=== PATIENT | female | born 1950 | race Caucasian/White ===

== ENCOUNTER → 2018-05-29 | Outpatient (CLI) | payer MEDICARE, OTHER ==
--- NOTE | 2018-05-30 08:39 | XR ---
2 view abdomen HISTORY: Severe lower abdomen pain and constipation 2 views the abdomen No comparisons Lung bases are clear. There is a spinal curvature, degenerative disc changes are present in the visua lized spine. No evident bowel obstruction or pneumoperitoneum. Coarse 3.3 cm calcification in the rig ht hemipelvis may be due to fibroid. Calcification superimposed over the midline measuring 9 mm is in determinate but could represent calcified diverticulum. IMPRESSION: Nonobstructive bowel gas pattern.
== END | disposition home or self-care (01) ==
LOC: RADXRMAIN 16:54
PROVIDERS: ATTEND Family Medicine
DX: R10.9 Unspecified abdominal pain (principal)
CPT/HCPCS: 74019

== ENCOUNTER 2019-06-12 11:37 | Inpatient (IN) | payer MEDICARE, OTHER ==
[2019-06-12] MEDS ORDERED: IPRATROPIUM-ALBUTEROL 3 ML NEB INHALATION STA (12:05)
[2019-06-12 12:45] LABS: Basophils # (A) 0.1 k/uL (0-0.2); Basophils % (A) 1 %; Eosinophils # (A) 0.1 k/uL (0-0.7); Eosinophils % (A) 2 %; HGB 14.4 gm/dL (11.4-16.0); Lymphocytes # (A) 1.6 k/uL (1.0-4.8); Lymphocytes % (A) 18 %; MCHC 32.6 g/dL (31.0-37.0); MCV 95.1 fL (80.0-100.0); Mean Platelet Volume 6.7; Monocytes # (A) 0.4 k/uL (0-1.0); Monocytes % (A) 5 %; Neutrophils # (A) 6.6 k/uL (1.3-7.7); Neutrophils % (A) 74 %; Platelet Count 391 k/uL (150-450); RBC 4.63 m/uL (3.80-5.40); RDW 14.2 % (11.5-15.5); WBC 8.9 k/uL (3.8-10.6)
--- NOTE | 2019-06-12 12:47 | XR ---
EXAMINATION TYPE: XR chest 2V DATE OF EXAM: 06/12/2019 COMPARISON: NONE TECHNIQUE: PA and lateral views submitted. HISTORY: Difficulty breathing FINDINGS: The lungs are clear and there is no pneumothorax, pleural effusion, or focal pneumonia. Diffuse ost eopenia with arthropathy of the shoulders. Hypertrophic and degenerative change of the spine. No over t failure. No consolidative process. IMPRESSION: 1. Correlate for COPD.
[2019-06-12 12:51] LABS: Appearance,Urine Clear (Clear); Bacteria,Urine Occasional /hpf; Bilirubin,Urine Negative (Negative); Blood,Urine Negative (Negative); Color,Urine Yellow; Glucose,Urine (UA) 1+ (Negative); Ketones,Urine Negative (Negative); Leukocyte Esterase,Urine Negative (Negative); Mucus,Urine Rare /hpf; Nitrite,Urine Negative (Negative); Protein,Urine 1+ (Negative); RBC,Urine 1 /hpf (0-5); Squamous Epithelial Cell,Urine 1 /hpf (0-4); Urobilinogen,Urine <2.0 mg/dL (<2.0)
[2019-06-12 12:53] LABS: INR 0.9 (<1.2); Partial Thromboplastin Time 23.1 sec (22.0-30.0); Prothrombin Time 9.6 sec (9.0-12.0)
[2019-06-12 13:14] LABS: ALT 22 U/L (9-52); AST 23 U/L (14-36); African American GFR (CKD) >90 (>60 ml/min/1.73 sqM); Albumin 4.4 g/dL (3.5-5.0); Alkaline Phosphatase 65 U/L (38-126); Anion Gap 14 mmol/L; Blood Urea Nitrogen 15 mg/dL (7-17); Calcium 10.2 mg/dL (8.4-10.2); Carbon Dioxide 22 mmol/L (22-30); Chloride 101 mmol/L (98-107); Glucose 245 mg/dL (74-99); Magnesium 1.4 mg/dL (1.6-2.3); Potassium 4.8 mmol/L (3.5-5.1); Sodium 137 mmol/L (137-145); Total Bilirubin 0.3 mg/dL (0.2-1.3); Total Protein 7.6 g/dL (6.3-8.2)
--- NOTE | 2019-06-12 13:35 | ED ---
General Adult HPI - General Source: patient, RN notes reviewed Mode of arrival: ambulatory Limitations: no limitations <Sung Jones - Last Filed: 06/12/19 15:10> <Conor Klein - Last Filed: 06/12/19 15:24> - General Chief complaint: Recheck/Abnormal Lab/Rx Stated complaint: high blood sugar/diarrhea Time Seen by Provider: 06/12/19 11:46 - History of Present Illness Initial comments: 68-year-old female presents emergency Department with multiple complaints. Patient states she just does not feel well. Patient has had some recent medication adjustments including discontinuation of gabapentin, starting about baclofen. Patient states that her blood sugars have been very labile states that she was in the 120s 130s but then we'll shield to 300s without eating. Patient states that she does feel shaky. She's also had some chest congestion or shortness of breath. Patient states she is a smoker and his history of COPD. Denies any current chest pain. She does complain of some ongoing diarrhea but denies any melena or hematochezia. Patient has no dysuria no hematuria denies any flank pain, known fever or chills. (Sung Jones) - Related Data Allergies Allergy/AdvReac Type Severity Reaction Status Date / Time No Known Allergies Allergy Verified 06/12/19 11:44 Review of Systems ROS Other: All systems not noted in ROS Statement are negative. <Sung Jones - Last Filed: 06/12/19 15:10> ROS Other: All systems not noted in ROS Statement are negative. <Conor Klein - Last Filed: 06/12/19 15:24> ROS Statement: Those systems with pertinent positive or pertinent negative responses have been documented in the HPI. Past Medical History Past Medical History: Diabetes Mellitus, Hyperlipidemia, Hypertension, Syncope Additional Past Medical History / Comment(s): neuropathy History of Any Multi-Drug Resistant Organisms: None Reported Past Surgical History: Cholecystectomy Additional Past Surgical History / Comment(s): umbilicus removed Past Psychological History: No Psychological Hx Reported Smoking Status: Current every day smoker Past Alcohol Use History: None Reported Past Drug Use History: None Reported <Sung Jones - Last Filed: 06/12/19 15:10> General Exam Limitations: no limitations General appearance: alert, in no apparent distress Head exam: Present: atraumatic, normocephalic, normal inspection Eye exam: Present: normal appearance, PERRL, EOMI. Absent: scleral icterus, conjunctival injection, periorbital swelling ENT exam: Present: normal exam, normal oropharynx, mucous membranes moist, TM's normal bilaterally Neck exam: Present: normal inspection, full ROM. Absent: tenderness, meningismus, lymphadenopathy Respiratory exam: Present: wheezes. Absent: normal lung sounds bilaterally, respiratory distress, rales, rhonchi, stridor Cardiovascular Exam: Present: regular rate, normal rhythm, normal heart sounds. Absent: systolic murmur, diastolic murmur, rubs, gallop, clicks GI/Abdominal exam: Present: soft, normal bowel sounds. Absent: distended, tenderness, guarding, rebound, rigid Back exam: Absent: CVA tenderness (R), CVA tenderness (L) Neurological exam: Present: alert Skin exam: Present: warm, dry, intact, normal color. Absent: rash <Sung Jones - Last Filed: 06/12/19 15:10> Course <Sung Jones - Last Filed: 06/12/19 15:10> <Conor Klein - Last Filed: 06/12/19 15:24> Vital Signs 06/12/19 06/12/19 06/12/19 11:38 12:43 12:49 Temperature 98.2 F Pulse Rate 101 H 86 88 Respiratory 16 16 16 Rate Blood Pressure 177/88 O2 Sat by Pulse 97 Oximetry 06/12/19 06/12/19 14:55 15:11 Temperature Pulse Rate 80 80 Respiratory Rate Blood Pressure O2 Sat by Pulse Oximetry - Reevaluation(s) Reevaluation #1: 06/12/19 14:31 Patient was been updated on lab results at this time and patient stated that she had a groin abscess and which she forgot to mention. This was evaluated with RN which shows a large area of induration, erythema and drainage on the right inguinal region. At this time patient was started on antibiotics for possible sepsis related to groin abscess, COPD exacerbation IV fluids were ordered. (Sung Jones) Reevaluation #2: 06/12/19 15:23 The supervision: I personally do a [id number] evaluation the patient patient did present with shortness of breath also she was noted have elevated blood sugar Acid originally thought to be secondary to dehydration this still may be the case however the patient does demonstrate evidence also she had a abscess in her right groin and has been spontaneously draining there is some induration no definite fluctuance at this time. She'll be placed on IV antibiotics. The case is discussed with Dr. Arroyo. (Conor Klein) EKG Findings - EKG Comments: EKG Findings:: 12:29 normal sinus rhythm incomplete right bundle rate of 89 RI 1:30 QRS 72 QT/QTC 338/411 <Sung Jones - Last Filed: 06/12/19 15:10> Procedures - Sepsis Sepsis Focused Exam #1 Time Sepsis Criteria Met: 15:00 Sepsis Focused Exam Date: 06/12/19 Sepsis Focused Exam Time: 15:12 Sepsis Focused Exam Complete: Yes Vital Signs & RN Notes Reviewed: Yes Capillary Refill: < 2 Seconds: Fingers, Toes Peripheral Pulses: Normal: Radial (R), Radial (L), Posterior Tibialis (R), Po sterior Tibialis (L), Dorsalis Pedis (R), Dorsalis Pedis (L) Skin Color: Normal for Patient Respiratory Exam: wheezes Cardiovascular Exam: tachycardia <Sung Jones - Last Filed: 06/12/19 15:10> Medical Decision Making - Lab Data Result diagrams: 06/12/19 12:24 06/12/19 12:24 <Sung Jones - Last Filed: 06/12/19 15:10> - Lab Data Result diagrams: 06/12/19 12:24 06/12/19 12:24 <Conor Klein - Last Filed: 06/12/19 15:24> - Medical Decision Making 68-year-old female presents emergency from for does not feel well. She's had labile blood sugar, diarrhea, shortness of breath. Patient has a COPD exacerb ation, , groin abscess, hyperglycemia. Patient was given IV fluid bolus based on I did evaluate to 59 kg, antibiotics including Rocephin and vancomycin ordered (Sung Jones) - Lab Data Lab Results 06/12/19 06/12/19 06/12/19 Range/Units 12:24 12:24 12:24 WBC 8.9 (3.8-10.6) k/uL RBC 4.63 (3.80-5.40) m/uL Hgb 14.4 (11.4-16.0) gm/dL Hct 44.0 (34.0-46.0) % MCV 95.1 (80.0-100.0) fL MCH 31.0 (25.0-35.0) pg MCHC 32.6 (31.0-37.0) g/dL RDW 14.2 (11.5-15.5) % Plt Count 391 (150-450) k/uL Neutrophils % 74 % Lymphocytes % 18 % Monocytes % 5 % Eosinophils % 2 % Basophils % 1 % Neutrophils # 6.6 (1.3-7.7) k/uL Lymphocytes # 1.6 (1.0-4.8) k/uL Monocytes # 0.4 (0-1.0) k/uL Eosinophils # 0.1 (0-0.7) k/uL Basophils # 0.1 (0-0.2) k/uL PT (9.0-12.0) sec INR (<1.2) APTT (22.0-30.0) sec Sodium 137 (137-145) mmol/L Potassium 4.8 (3.5-5.1) mmol/L Chloride 101 (98-107) mmol/L Carbon Dioxide 22 (22-30) mmol/L Anion Gap 14 mmol/L BUN 15 (7-17) mg/dL Creatinine 0.63 (0.52-1.04) mg/dL Est GFR (CKD-EPI)AfAm >90 (>60 ml/min/1.73 sqM) Est GFR (CKD-EPI)NonAf >90 (>60 ml/min/1.73 sqM) Glucose 245 H (74-99) mg/dL Plasma Lactic Acid Félix 4.0 H* (0.7-2.0) mmol/L Calcium 10.2 (8.4-10.2) mg/dL Magnesium 1.4 L (1.6-2.3) mg/dL Total Bilirubin 0.3 (0.2-1.3) mg/dL AST 23 (14-36) U/L ALT 22 (9-52) U/L Alkaline Phosphatase 65 (38-126) U/L Troponin I (0.000-0.034) ng/mL NT-Pro-B Natriuret Pep pg/mL Total Protein 7.6 (6.3-8.2) g/dL Albumin 4.4 (3.5-5.0) g/dL Urine Color Urine Appearance (Clear) Urine pH (5.0-8.0) Ur Specific [place] (1.001-1.035) Urine Protein (Negative) Urine Glucose (UA) (Negative) Urine Ketones (Negative) Urine Blood (Negative) Urine Nitrite (Negative) Urine Bilirubin (Negative) Urine Urobilinogen (<2.0) mg/dL Ur Leukocyte Esterase (Negative) Urine RBC (0-5) /hpf Urine WBC (0-5) /hpf Ur Squamous Epith Cells (0-4) /hpf Urine Bacteria (None) /hpf Urine Mucus (None) /hpf 06/12/19 06/12/19 06/12/19 Range/Units 12:24 12:24 12:24 WBC (3.8-10.6) k/uL RBC (3.80-5.40) m/uL Hgb (11.4-16.0) gm/dL Hct (34.0-46.0) % MCV (80.0-100.0) fL MCH (25.0-35.0) pg MCHC (31.0-37.0) g/dL RDW (11.5-15.5) % Plt Count (150-450) k/uL Neutrophils % % Lymphocytes % % Monocytes % % Eosinophils % % Basophils % % Neutrophils # (1.3-7.7) k/uL Lymphocytes # (1.0-4.8) k/uL Monocytes # (0-1.0) k/uL Eosinophils # (0-0.7) k/uL Basophils # (0-0.2) k/uL PT 9.6 (9.0-12.0) sec INR 0.9 (<1.2) APTT 23.1 (22.0-30.0) sec Sodium (137-145) mmol/L Potassium (3.5-5.1) mmol/L Chloride (98-107) mmol/L Carbon Dioxide (22-30) mmol/L Anion Gap mmol/L BUN (7-17) mg/dL Creatinine (0.52-1.04) mg/dL Est GFR (CKD-EPI)AfAm (>60 ml/min/1.73 sqM) Est GFR (CKD-EPI)NonAf (>60 ml/min/1.73 sqM) Glucose (74-99) mg/dL Plasma Lactic Acid Félix (0.7-2.0) mmol/L Calcium (8.4-10.2) mg/dL Magnesium (1.6-2.3) mg/dL Total Bilirubin (0.2-1.3) mg/dL AST (14-36) U/L ALT (9-52) U/L Alkaline Phosphatase (38-126) U/L Troponin I <0.012 (0.000-0.034) ng/mL NT-Pro-B Natriuret Pep 118 pg/mL Total Protein (6.3-8.2) g/dL Albumin (3.5-5.0) g/dL Urine Color Urine Appearance (Clear) Urine pH (5.0-8.0) Ur Specific [place] (1.001-1.035) Urine Protein (Negative) Urine Glucose (UA) (Negative) Urine Ketones (Negative) Urine Blood (Negative) Urine Nitrite (Negative) Urine Bilirubin (Negative) Urine Urobilinogen (<2.0) mg/dL Ur Leukocyte Esterase (Negative) Urine RBC (0-5) /hpf Urine WBC (0-5) /hpf Ur Squamous Epith Cells (0-4) /hpf Urine Bacteria (None) /hpf Urine Mucus (None) /hpf 06/12/19 Range/Units 12:24 WBC (3.8-10.6) k/uL RBC (3.80-5.40) m/uL Hgb (11.4-16.0) gm/dL Hct (34.0-46.0) % MCV (80.0-100.0) fL MCH (25.0-35.0) pg MCHC (31.0-37.0) g/dL RDW (11.5-15.5) % Plt Count (150-450) k/uL Neutrophils % % Lymphocytes % % Monocytes % % Eosinophils % % Basophils % % Neutrophils # (1.3-7.7) k/uL Lymphocytes # (1.0-4.8) k/uL Monocytes # (0-1.0) k/uL Eosinophils # (0-0.7) k/uL Basophils # (0-0.2) k/uL PT (9.0-12.0) sec INR (<1.2) APTT (22.0-30.0) sec Sodium (137-145) mmol/L Potassium (3.5-5.1) mmol/L Chloride (98-107) mmol/L Carbon Dioxide (22-30) mmol/L Anion Gap mmol/L BUN (7-17) mg/dL Creatinine (0.52-1.04) mg/dL Est GFR (CKD-EPI)AfAm (>60 ml/min/1.73 sqM) Est GFR (CKD-EPI)NonAf (>60 ml/min/1.73 sqM) Glucose (74-99) mg/dL Plasma Lactic Acid Félix (0.7-2.0) mmol/L Calcium (8.4-10.2) mg/dL Magnesium (1.6-2.3) mg/dL Total Bilirubin (0.2-1.3) mg/dL AST (14-36) U/L ALT (9-52) U/L Alkaline Phosphatase (38-126) U/L Troponin I (0.000-0.034) ng/mL NT-Pro-B Natriuret Pep pg/mL Total Protein (6.3-8.2) g/dL Albumin (3.5-5.0) g/dL Urine Color Yellow Urine Appearance Clear (Clear) Urine pH 6.0 (5.0-8.0) Ur Specific [place] 1.010 (1.001-1.035) Urine Protein 1+ H (Negative) Urine Glucose (UA) 1+ H (Negative) Urine Ketones Negative (Negative) Urine Blood Negative (Negative) Urine Nitrite Negative (Negative) Urine Bilirubin Negative (Negative) Urine Urobilinogen <2.0 (<2.0) mg/dL Ur Leukocyte Esterase Negative (Negative) Urine RBC 1 (0-5) /hpf Urine WBC 1 (0-5) /hpf Ur Squamous Epith Cells 1 (0-4) /hpf Urine Bacteria Occasional H (None) /hpf Urine Mucus Rare H (None) /hpf Critical Care Time Critical Care Time: Yes Total Critical Care Time: 35 <Sung Jones - Last Filed: 06/12/19 15:10> Critical Care Time: Total of 35 minutes, this was used to initially evaluated the patient, reviewed past medical history, ordered labs including CBC, CMP, lactic acid, chest x-ray, EKG, urinalysis. Patient found to have lactic acidosis of 4, IV fluid bolus was ordered, antibiotics are ordered initial presentation was for URI symptoms, diarrhea and labile blood sugar. They injury found that she has inguinal abscess and may be cause for her lactic acidosis. Patient will be treated for possible sepsis. (Sung Jones) Disposition <Sung Jones - Last Filed: 06/12/19 15:10> <Conor Klein - Last Filed: 06/12/19 15:24> Clinical Impression: COPD exacerbation, Groin abscess, Lactic acidosis Disposition: ADMITTED IP TO THIS HOSP Condition: Fair Referrals: Yazmin Nascimento DO [Primary Care Provider] - 1-2 days
[2019-06-12] MEDS ORDERED: SODIUM CHLORIDE 0.9% 2,000 ML IV ONE (14:28)
[2019-06-12] MEDS ORDERED: VANCOMYCIN IV PER PHARMACY 1 EACH MISC MISCELLANE PRN (14:29)
[2019-06-12] MEDS ORDERED: methylPREDNISolone SOD SUCCI 125 MG/2 ML VIAL IV STA (14:30)
[2019-06-12] MEDS ORDERED: ALBUTEROL NEBULIZED 2.5 MG/3 ML INHALATION STA (14:32)
[2019-06-12] MEDS ORDERED: VANCOMYCIN 1,750 MG in SODIUM CHLORIDE 0.9% 500 ML 500 ML IVPB ONE (15:00)
[2019-06-12] MEDS: IPRATROPIUM-ALBUTEROL 3 ML NEB INHALATION SCH ×2 (16:13→20:18)
[2019-06-12] MEDS ORDERED: INSULIN ASPART (NovoLOG) 100 UNIT/ML VIAL SQ SCH ×2 (17:30→21:00)
[2019-06-12] MEDS ORDERED: BACLOFEN 10 MG TAB PO PRN (17:46)
[2019-06-12 17:52] LABS: Glucose,Whole Blood 253 mg/dL (75-99)
[2019-06-12] MEDS ORDERED: methylPREDNISolone SOD SUCCI 125 MG/2 ML VIAL IV SCH (18:00)
[2019-06-12 18:28] VITALS: BMI 34.7
[2019-06-12] MEDS: glipiZIDE 10 MG TAB PO SCH (18:41)
[2019-06-12] MEDS: methylPREDNISolone SOD SUCCI 40 MG/ML 1 ML VIAL IV SCH (18:41)
[2019-06-12 21:12] LABS: Glucose,Whole Blood 316 mg/dL (75-99)
[2019-06-12] MEDS ORDERED: INSULIN ASPART (NovoLOG) 100 UNIT/ML VIAL SQ ONE (21:49)
[2019-06-12] MEDS: ATORVASTATIN 10 MG TAB PO SCH (22:06)
[2019-06-12] MEDS: metFORMIN 500 MG TAB PO SCH (22:06)
[2019-06-12] MEDS: ASPIRIN 81 MG PO SCH (22:07)
[2019-06-12] MEDS: INSULIN ASPART (NovoLOG) 100 UNIT/ML VIAL SQ SCH (22:08)
[2019-06-12] MEDS: LINAGLIPTIN 5 MG TABLET PO SCH (22:51)
[2019-06-12] MEDS: SODIUM CHLORIDE 0.9% 1,000 ML IV SCH (22:52)
[2019-06-13] MEDS: methylPREDNISolone SOD SUCCI 40 MG/ML 1 ML VIAL IV SCH ×3 (00:07→16:05)
[2019-06-13] MEDS: VANCOMYCIN 1,500 MG in SODIUM CHLORIDE 0.9% 250 ML IVPB SCH ×2 (04:39→16:04)
[2019-06-13 07:27] LABS: Glucose,Whole Blood 216 mg/dL (75-99)
[2019-06-13] MEDS: MULTIVITAMINS, THERA 1 EACH TAB PO SCH (08:19)
[2019-06-13] MEDS: LISINOPRIL 20 MG TAB PO SCH (08:20)
[2019-06-13] MEDS: metFORMIN 500 MG TAB PO SCH ×2 (08:20→22:10)
[2019-06-13] MEDS: glipiZIDE 10 MG TAB PO SCH ×2 (08:20→17:52)
[2019-06-13] MEDS: INSULIN ASPART (NovoLOG) 100 UNIT/ML VIAL SQ SCH ×4 (08:20→22:10)
[2019-06-13] MEDS: IPRATROPIUM-ALBUTEROL 3 ML NEB INHALATION SCH ×4 (08:50→20:51)
--- NOTE | 2019-06-13 11:11 | P.GSCN ---
History of Present Illness Consult date: 06/13/19 Reason for Consult: Right groin cyst History of present illness: This is a 68-year-old female was admitted to the hospital with COPD and lactic acidosis. Patient states that she drained a cyst in her right groin. She describes while bathing herself in the shower squeezing an area right groin where some white colored material exited a cyst. Patient states that she has no significant pain in the area. There is no evidence of any induration. She describes a sebaceous cyst probably measuring approximately 3 cm in diameter. Past Medical History Past Medical History: Diabetes Mellitus, Hyperlipidemia, Hypertension Additional Past Medical History / Comment(s): neuropathy History of Any Multi-Drug Resistant Organisms: None Reported Past Surgical History: Cholecystectomy Additional Past Surgical History / Comment(s): umbilicus removed Past Anesthesia/Blood Transfusion Reactions: No Reported Reaction Past Psychological History: No Psychological Hx Reported Smoking Status: Current every day smoker Past Alcohol Use History: None Reported Past Drug Use History: None Reported - Past Family History Father Family Medical History: Myocardial Infarction ([place]) Additional Family Medical History / Comment(s): cardiac problems unknown Brother(s) Additional Family Medical History / Comment(s): CA multiple mylomia, Colon CA Medications and Allergies Home Medications Medication Instructions Recorded Confirmed Type Aspirin EC [Ecotrin Low Dose] 81 mg PO HS 06/12/19 06/12/19 History Baclofen [Lioresal] 10 mg PO TID PRN 06/12/19 06/12/19 History Benazepril HCl [Lotensin] 40 mg PO DAILY 06/12/19 06/12/19 History Lovastatin [Mevacor] 40 mg PO HS 06/12/19 06/12/19 History Meclizine [Antivert] 12.5 mg PO TID PRN 06/12/19 06/12/19 History Multivit with Calcium,Iron,Min 1 tab PO DAILY 06/12/19 06/12/19 History [Women's Multivitamin] glipiZIDE [Glucotrol] 10 mg PO AC-BID 06/12/19 06/12/19 History metFORMIN HCL 1,000 mg PO BID 06/12/19 06/12/19 History sitaGLIPtin PHOSPHATE [Januvia] 100 mg PO HS 06/12/19 06/12/19 History Allergies Allergy/AdvReac Type Severity Reaction Status Date / Time No Known Allergies Allergy Verified 06/12/19 15:25 Surgical - Exam Vital Signs Temp Pulse Resp BP Pulse Ox 98.2 F 101 H 16 177/88 97 06/12/19 11:38 06/12/19 11:38 06/12/19 11:38 06/12/19 11:38 06/12/19 11:38 - General well developed, well nourished, no distress - Integumentary There is evidence of a large pore on the skin in the right groin. This is most likely with a sebaceous cyst was. There is no ascending infection at this point. Results - Labs 06/12/19 12:24 06/12/19 12:24 Abnormal Lab Results - Last 24 Hours (Table) 06/12/19 06/12/19 06/12/19 Range/Units 12:24 12:24 12:24 Glucose 245 H (74-99) mg/dL POC Glucose (mg/dL) (75-99) mg/dL Plasma Lactic Acid Félix 4.0 H* (0.7-2.0) mmol/L Magnesium 1.4 L (1.6-2.3) mg/dL Urine Protein 1+ H (Negative) Urine Glucose (UA) 1+ H (Negative) Urine Bacteria Occasional H (None) /hpf Urine Mucus Rare H (None) /hpf 06/12/19 06/12/19 06/12/19 Range/Units 17:04 17:38 20:58 Glucose (74-99) mg/dL POC Glucose (mg/dL) 253 H 316 H (75-99) mg/dL Plasma Lactic Acid Félix 3.5 H* (0.7-2.0) mmol/L Magnesium (1.6-2.3) mg/dL Urine Protein (Negative) Urine Glucose (UA) (Negative) Urine Bacteria (None) /hpf Urine Mucus (None) /hpf 06/12/19 06/13/19 06/13/19 Range/Units 21:01 00:08 01:07 Glucose (74-99) mg/dL POC Glucose (mg/dL) (75-99) mg/dL Plasma Lactic Acid Félix 5.1 H* 5.3 H* 5.1 H* (0.7-2.0) mmol/L Magnesium (1.6-2.3) mg/dL Urine Protein (Negative) Urine Glucose (UA) (Negative) Urine Bacteria (None) /hpf Urine Mucus (None) /hpf 06/13/19 06/13/19 Range/Units 06:35 07:25 Glucose (74-99) mg/dL POC Glucose (mg/dL) 216 H (75-99) mg/dL Plasma Lactic Acid Félix 4.4 H* (0.7-2.0) mmol/L Magnesium (1.6-2.3) mg/dL Urine Protein (Negative) Urine Glucose (UA) (Negative) Urine Bacteria (None) /hpf Urine Mucus (None) /hpf Diabetes panel 06/12/19 Range/Units 12:24 Sodium 137 (137-145) mmol/L Potassium 4.8 (3.5-5.1) mmol/L Chloride 101 (98-107) mmol/L Carbon Dioxide 22 (22-30) mmol/L BUN 15 (7-17) mg/dL Creatinine 0.63 (0.52-1.04) mg/dL Glucose 245 H (74-99) mg/dL Calcium 10.2 (8.4-10.2) mg/dL AST 23 (14-36) U/L ALT 22 (9-52) U/L Alkaline Phosphatase 65 (38-126) U/L Total Protein 7.6 (6.3-8.2) g/dL Albumin 4.4 (3.5-5.0) g/dL Calcium panel 06/12/19 Range/Units 12:24 Calcium 10.2 (8.4-10.2) mg/dL Albumin 4.4 (3.5-5.0) g/dL Pituitary panel 06/12/19 Range/Units 12:24 Sodium 137 (137-145) mmol/L Potassium 4.8 (3.5-5.1) mmol/L Chloride 101 (98-107) mmol/L Carbon Dioxide 22 (22-30) mmol/L BUN 15 (7-17) mg/dL Creatinine 0.63 (0.52-1.04) mg/dL Glucose 245 H (74-99) mg/dL Calcium 10.2 (8.4-10.2) mg/dL Adrenal panel 06/12/19 Range/Units 12:24 Sodium 137 (137-145) mmol/L Potassium 4.8 (3.5-5.1) mmol/L Chloride 101 (98-107) mmol/L Carbon Dioxide 22 (22-30) mmol/L BUN 15 (7-17) mg/dL Creatinine 0.63 (0.52-1.04) mg/dL Glucose 245 H (74-99) mg/dL Calcium 10.2 (8.4-10.2) mg/dL Total Bilirubin 0.3 (0.2-1.3) mg/dL AST 23 (14-36) U/L ALT 22 (9-52) U/L Alkaline Phosphatase 65 (38-126) U/L Total Protein 7.6 (6.3-8.2) g/dL Albumin 4.4 (3.5-5.0) g/dL Assessment and Plan Assessment: Spontaneously drained sebaceous cyst. Would recommend observation this point. There is no surgical intervention planned.
[2019-06-13 12:03] LABS: Glucose,Whole Blood 256 mg/dL (75-99)
[2019-06-13] MEDS: SODIUM CHLORIDE 0.9% 1,000 ML IV SCH ×2 (12:08→17:55)
[2019-06-13 16:50] LABS: Glucose,Whole Blood 213 mg/dL (75-99)
--- NOTE | 2019-06-13 16:55 | P.HPIM ---
History of Present Illness H&P Date: 06/13/19 Chief Complaint: Weak and tired History of presenting complaint: This is us pleasant 68-year-old patient of Dr. Yazmin Nascimento. Chronic stable medical conditions include diabetes, hypertension, hyperlipidemia, peripheral neuropathy, osteoarthritis. Patient for about 2 or 3 weeks noticed to Cha the started growing in the right groin. It due to the size of a golf ball.. Emeka flower started using a hot compress on a daily basis and about a week ago quite a bit of pus came out. Patient had did have some fever and chills. It has significantly healed up in the right groin. Patient also presented with shortness of breath cough wheezing and some yellow sputum. Overall feeling unwell. Presented to the ER. Admitted for the same. General surgery was consulted. Was put on antibiotics bronchodilators steroids. Feeling better this morning when I saw her. Patient's [id number] is by the bedside. Review of systems: GEN.: Tired EYES: None HEENT: None NECK: None RESPIRATORY: As above CARDIOVASCULAR: None GASTROINTESTINAL: None GENITOURINARY: As above MUSCULOSKELETAL: None LYMPHATICS: None HEMATOLOGICAL: None PSYCHIATRY: None NEUROLOGICAL: None Social history: Smokes a pack a day for close to 50 years. Lives alone. No alcohol. Family history: Myocardial infarction Physical examination: VITAL SIGNS: 98.2, 101, 16, 177-88, 97% on 2 L GENERAL: BMI 34.7, sitting up in bed not in distress. EYES: Pupils equal. Conjunctiva normal. HEENT: External appearance of nose and ears normal, oral cavity grossly normal. NECK: JVD not raised; masses not palpable. HEART: First and second heart sounds are normal; no edema. LUNGS: Respiratory rate increased, diminished breath sounds prolonged expiration, expiratory wheezing. ABDOMEN: Soft, nontender, liver spleen not palpable, no masses palpable, right groin showing a small opening with small area of induration with some local tenderness. PSYCH: Alert and oriented x3; mood and affect normal. NEUROLOGICAL: Cranial nerves grossly intact; no facial asymmetry, power and sensation grossly intact. LYMPHATICS: No lymph nodes palpable in the axilla and neck Investigations: White count 8.9 globin 14.4 platelets 391 potassium 4.8 bun 15 creatinine 0.63 lactic acid 4.0 EKG tracing personally reviewed by me-normal sinus rhythm Chest x-ray film personally reviewed by me-AP film, underpenetrated, no obvious infiltrates Assessment: -Acute COPD exacerbation in a current smoker, with tracheobronchitis -Right groin abscess that is being present for about 2 or 3 weeks that patient used hot compresses at home and about a week ago pus was obtained. It drained well. Today's greatly improved. General surgery was consulted. -Chronic nicotine dependence patient cigarette smoker -Diabetes mellitus type 2 on oral hypoglycemic -Hyperlipidemia -Essential hypertension -Diabetic peripheral neuropathy -Obesity BMI 34.7 Plan: Patient started on bronchodilators and IV steroids. Patient was started on IV antibiotics in the ER. We'll switch to IV Zosyn. General surgery was consulted. No surgical intervention at present time. Care was discussed with the patient. Accu-Cheks will be followed. Lovenox for DVT prophylaxis. Smoke cessation counseling: This was done with the patient. Nicotine patch is being given. More than 3 minutes was spent for this Past Medical History Past Medical History: Diabetes Mellitus, Hyperlipidemia, Hypertension Additional Past Medical History / Comment(s): neuropathy History of Any Multi-Drug Resistant Organisms: None Reported Past Surgical History: Cholecystectomy Additional Past Surgical History / Comment(s): umbilicus removed Past Anesthesia/Blood Transfusion Reactions: No Reported Reaction Past Psychological History: No Psychological Hx Reported Smoking Status: Current every day smoker Past Alcohol Use History: None Reported Past Drug Use History: None Reported - Past Family History Father Family Medical History: Myocardial Infarction ([place]) Additional Family Medical History / Comment(s): cardiac problems unknown Brother(s) Additional Family Medical History / Comment(s): CA multiple mylomia, Colon CA Medications and Allergies Home Medications Medication Instructions Recorded Confirmed Type Aspirin EC [Ecotrin Low Dose] 81 mg PO HS 06/12/19 06/12/19 History Baclofen [Lioresal] 10 mg PO TID PRN 06/12/19 06/12/19 History Benazepril HCl [Lotensin] 40 mg PO DAILY 06/12/19 06/12/19 History Lovastatin [Mevacor] 40 mg PO HS 06/12/19 06/12/19 History Meclizine [Antivert] 12.5 mg PO TID PRN 06/12/19 06/12/19 History Multivit with Calcium,Iron,Min 1 tab PO DAILY 06/12/19 06/12/19 History [Women's Multivitamin] glipiZIDE [Glucotrol] 10 mg PO AC-BID 06/12/19 06/12/19 History metFORMIN HCL 1,000 mg PO BID 06/12/19 06/12/19 History sitaGLIPtin PHOSPHATE [Januvia] 100 mg PO HS 06/12/19 06/12/19 History Allergies Allergy/AdvReac Type Severity Reaction Status Date / Time No Known Allergies Allergy Verified 06/12/19 15:25 Physical Exam Vitals: Vital Signs Temp Pulse Pulse Resp BP BP Pulse Ox 06/13/19 09:00 84 06/13/19 08:50 88 06/13/19 07:00 98 F 88 16 149/73 97 06/13/19 04:43 97.8 F 84 16 145/74 95 06/13/19 04:40 16 06/13/19 00:55 97.9 F 80 18 140/67 94 L 06/12/19 20:32 92 06/12/19 20:18 96 96 06/12/19 19:44 96.8 F L 99 18 155/70 97 06/12/19 19:00 18 06/12/19 17:34 97.9 F 92 14 159/79 96 06/12/19 16:12 96 18 162/67 100 06/12/19 15:41 96 18 172/85 97 06/12/19 15:11 80 06/12/19 14:55 80 06/12/19 12:49 88 16 06/12/19 12:43 86 16 06/12/19 11:38 98.2 F 101 H 16 177/88 97 Intake and Output 06/12/19 06/13/19 06/13/19 22:59 06:59 14:59 Intake Total 120 1500 Balance 120 1500 Intake: Intake, IV Titration 1200 Amount Sodium Chloride 0.9% 1, 1200 000 ml @ 100 mls/hr IV . Q10H [facility] Rx#:[id number] Oral 120 300 Other: Voiding Method Toilet # Voids 1 1 Results CBC & Chem 7: 06/12/19 12:24 06/12/19 12:24 Labs: Abnormal Lab Results - Last 24 Hours (Table) 06/12/19 06/12/19 06/12/19 Range/Units 12:24 12:24 12:24 Glucose 245 H (74-99) mg/dL POC Glucose (mg/dL) (75-99) mg/dL Plasma Lactic Acid Félix 4.0 H* (0.7-2.0) mmol/L Magnesium 1.4 L (1.6-2.3) mg/dL Urine Protein 1+ H (Negative) Urine Glucose (UA) 1+ H (Negative) Urine Bacteria Occasional H (None) /hpf Urine Mucus Rare H (None) /hpf 06/12/19 06/12/19 06/12/19 Range/Units 17:04 17:38 20:58 Glucose (74-99) mg/dL POC Glucose (mg/dL) 253 H 316 H (75-99) mg/dL Plasma Lactic Acid Félix 3.5 H* (0.7-2.0) mmol/L Magnesium (1.6-2.3) mg/dL Urine Protein (Negative) Urine Glucose (UA) (Negative) Urine Bacteria (None) /hpf Urine Mucus (None) /hpf 06/12/19 06/13/19 06/13/19 Range/Units 21:01 00:08 01:07 Glucose (74-99) mg/dL POC Glucose (mg/dL) (75-99) mg/dL Plasma Lactic Acid Félix 5.1 H* 5.3 H* 5.1 H* (0.7-2.0) mmol/L Magnesium (1.6-2.3) mg/dL Urine Protein (Negative) Urine Glucose (UA) (Negative) Urine Bacteria (None) /hpf Urine Mucus (None) /hpf 06/13/19 06/13/19 Range/Units 06:35 07:25 Glucose (74-99) mg/dL POC Glucose (mg/dL) 216 H (75-99) mg/dL Plasma Lactic Acid Félix 4.4 H* (0.7-2.0) mmol/L Magnesium (1.6-2.3) mg/dL Urine Protein (Negative) Urine Glucose (UA) (Negative) Urine Bacteria (None) /hpf Urine Mucus (None) /hpf Thrombosis Risk Factor Assmnt - Choose All That Apply Any of the Below Risk Factors Present?: Yes Each Factor Represents 1 point: Obesity (BMI >25) Other Risk Factors: Yes Each Risk Factor Represents 2 Points: Age 61-74 years Other congenital or acquired thrombophilia - If yes, enter type in comment: No Thrombosis Risk Factor Assessment Total Risk Factor Score: 3 Thrombosis Risk Factor Assessment Level: Moderate Risk
[2019-06-13] MEDS: NICOTINE 21MG/24HR PATCH TRANSDERM SCH (17:48)
[2019-06-13] MEDS: ENOXAPARIN 40 MG/0.4 ML SYRINGE SQ SCH (17:53)
[2019-06-13] MEDS: PIPERACILLIN-TAZOBACTAM 3.375 GM in SODIUM CHLORIDE 0.9% 100 ML IVPB SCH (17:54)
[2019-06-13 21:00] LABS: Glucose,Whole Blood 327 mg/dL (75-99)
[2019-06-13] MEDS: ATORVASTATIN 10 MG TAB PO SCH (22:10)
[2019-06-13] MEDS: ASPIRIN 81 MG PO SCH (22:10)
[2019-06-13] MEDS: LINAGLIPTIN 5 MG TABLET PO SCH (22:11)
[2019-06-13] MEDS ORDERED: INSULIN REGULAR 100 UNIT in SODIUM CHLORIDE 0.9% 100 ML IV SCH (23:00)
[2019-06-13 23:10] LABS: Glucose,Whole Blood 339 mg/dL (75-99)
[2019-06-13 23:38] LABS: Glucose,Whole Blood 282 mg/dL (75-99)
[2019-06-13 23:59] LABS: Glucose,Whole Blood 258 mg/dL (75-99)
[2019-06-14] MEDS: methylPREDNISolone SOD SUCCI 40 MG/ML 1 ML VIAL IV SCH ×2 (00:27→07:21)
[2019-06-14] MEDS: PIPERACILLIN-TAZOBACTAM 3.375 GM in SODIUM CHLORIDE 0.9% 100 ML IVPB SCH ×2 (00:27→07:24)
[2019-06-14 00:57] LABS: Glucose,Whole Blood 157 mg/dL (75-99)
[2019-06-14 01:25] VITALS: RESP 15
[2019-06-14 03:00] LABS: Glucose,Whole Blood 73 mg/dL (75-99)
[2019-06-14 04:02] LABS: Glucose,Whole Blood 124 mg/dL (75-99)
[2019-06-14 04:42] LABS: African American GFR (CKD) >90 (>60 ml/min/1.73 sqM)
[2019-06-14 05:06] LABS: Glucose,Whole Blood 165 mg/dL (75-99)
[2019-06-14] MEDS: SODIUM CHLORIDE 0.9% 1,000 ML IV SCH (05:36)
[2019-06-14] MEDS: metFORMIN 500 MG TAB PO SCH (07:23)
[2019-06-14] MEDS: LISINOPRIL 20 MG TAB PO SCH (07:23)
[2019-06-14] MEDS: ENOXAPARIN 40 MG/0.4 ML SYRINGE SQ SCH (07:23)
[2019-06-14] MEDS: MULTIVITAMINS, THERA 1 EACH TAB PO SCH (07:23)
[2019-06-14 07:27] LABS: Glucose,Whole Blood 155 mg/dL (75-99)
[2019-06-14] MEDS: NICOTINE 21MG/24HR PATCH TRANSDERM SCH (07:31)
[2019-06-14] MEDS: IPRATROPIUM-ALBUTEROL 3 ML NEB INHALATION SCH ×3 (08:57→17:13)
[2019-06-14 10:14] LABS: Glucose,Whole Blood 166 mg/dL (75-99)
--- NOTE | 2019-06-14 10:43 | P.PN ---
Progress Note - Text Progress Note Date: 06/14/19 The patient is resting comfortably in her bed. She denies any significant pain from her right groin sebaceous cyst site. She's had no further drainage or swelling. On exam the right groin sebaceous cyst shows no evidence of erythema or induration. Status post spontaneous drainage of right groin sebaceous cyst. Patient will be observed. There is no surgical intervention planned.
[2019-06-14 11:58] LABS: Glucose,Whole Blood 157 mg/dL (75-99)
[2019-06-14] MEDS ORDERED: VANCOMYCIN TROUGH DUE 1 EACH MISC MISCELLANE ONE (15:00)
[2019-06-14 15:38] VITALS: BP 168/75; TEMP 98.7
[2019-06-14] MEDS ORDERED: metFORMIN 500 MG TAB PO STA (16:48)
[2019-06-14] MEDS ORDERED: glipiZIDE 10 MG TAB PO STA (16:48)
[2019-06-14 16:51] LABS: Glucose,Whole Blood 337 mg/dL (75-99)
[2019-06-14] MEDS ORDERED: LINAGLIPTIN 5 MG TABLET PO SCH (17:00)
[2019-06-14 17:19] VITALS: PULSE 88
[2019-06-14] MEDS ORDERED: INSULIN ASPART (NovoLOG) 100 UNIT/ML VIAL SQ SCH (17:30)
--- NOTE | 2019-06-14 21:57 | P.DS ---
Providers Date of admission: 06/12/19 15:22 Expected date of discharge: 06/14/19 Attending physician: Eliezer Arroyo Consults: 06/12/19 16:13 Consult Physician Routine Consulting Provider: Duane Wallace Consult Reason/Comments: Abscess Do you want consulting provider notified?: Yes Primary care physician: Yazmin Nascimento [facility] Course: interval history: This is us pleasant 68-year-old patient of Dr. Yazmin Nascimento. Chronic stable medical conditions include diabetes, hypertension, hyperlipidemia, peripheral neuropathy, osteoarthritis. Patient for about 2 or 3 weeks noticed to Cha the started growing in the right groin. It due to the size of a golf ball.. Patient started using a hot compress on a daily basis and about a week ago quite a bit of pus came out. Patient had did have some fever and chills. It has significantly healed up in the right groin. Patient also presented with shortness of breath cough wheezing and some yellow sputum. Overall feeling unwell. Presented to the ER. Admitted for the same. General surgery was consulted. Was put on antibiotics bronchodilators steroids. Seen by Dr. Wallace. Not feeling any further intervention. Continue antibiotics. Patient was counseled about smoking. Breathing much improved. Had COPD exacerbation. Today discuss at length patient question were answered. Discussion and discharge planning more than 35 minutes Consultation: Dr. Wallace from general surgery Physical examination: VITAL SIGNS: 98.7, 88, 15, 160-75, 95% room air GENERAL: BMI 34.7, sitting up, comfortable EYES: Pupils equal. Conjunctiva normal. HEENT: External appearance of nose and ears normal, oral cavity grossly normal. NECK: JVD not raised; masses not palpable. HEART: First and second heart sounds are normal; no edema. LUNGS: Respiratory rate normal, diminished breath sounds . ABDOMEN: Soft, nontender, liver spleen not palpable, no masses palpable, right groin showing a small opening with small area of induration with some local tenderness. PSYCH: Alert and oriented x3; mood and affect normal. Investigations: White count 8.9 globin 14.4 platelets 391 potassium 4.8 bun 15 creatinine 0.63 lactic acid 4.0 EKG tracing personally reviewed by me-normal sinus rhythm Chest x-ray film personally reviewed by me-AP film, underpenetrated, no obvious infiltrates discharge diagnosis: -Acute COPD exacerbation in a current smoker, with tracheobronchitis, improved -Right groin abscess that is being present for about 2 or 3 weeks that patient used hot compresses at home and about a week ago pus was obtained. It drained well. Tnot for any further intervention per general surgeryd. -Chronic nicotine dependence patient cigarette smoker -Diabetes mellitus type 2 on oral hypoglycemic -Hyperlipidemia -Essential hypertension -Diabetic peripheral neuropathy -Obesity BMI 34.7 disposition: Home Patient Condition at Discharge: Stable Plan - Discharge Summary Discharge Rx Participant: Yes New Discharge Prescriptions: New Ipratropium B[place]the [Atrovent Hfa] 2 puff INHALATION TID #1 inhaler Amoxicillin/Potassium Clav [Augmentin 875-125 Tablet] 1 tab PO Q12HR #14 tab Nicotine 21Mg/24Hr Patch [Habitrol] 1 patch TRANSDERM DAILY #14 patch Continue sitaGLIPtin PHOSPHATE [Januvia] 100 mg PO HS Lovastatin [Mevacor] 40 mg PO HS Aspirin EC [Ecotrin Low Dose] 81 mg PO HS metFORMIN HCL 1,000 mg PO BID glipiZIDE [Glucotrol] 10 mg PO AC-BID Benazepril HCl [Lotensin] 40 mg PO DAILY Baclofen [Lioresal] 10 mg PO TID PRN PRN Reason: Muscle Spasm Multivit with Calcium,Iron,Min [Women's Multivitamin] 1 tab PO DAILY Discontinued Meclizine [Antivert] 12.5 mg PO TID PRN PRN Reason: Vertigo Discharge Medication List Aspirin EC [Ecotrin Low Dose] 81 mg PO HS 06/12/19 [History] Baclofen [Lioresal] 10 mg PO TID PRN 06/12/19 [History] Benazepril HCl [Lotensin] 40 mg PO DAILY 06/12/19 [History] Lovastatin [Mevacor] 40 mg PO HS 06/12/19 [History] Multivit with Calcium,Iron,Min [Women's Multivitamin] 1 tab PO DAILY 06/12/19 [History] glipiZIDE [Glucotrol] 10 mg PO AC-BID 06/12/19 [History] metFORMIN HCL 1,000 mg PO BID 06/12/19 [History] sitaGLIPtin PHOSPHATE [Januvia] 100 mg PO HS 06/12/19 [History] Amoxicillin/Potassium Clav [Augmentin 875-125 Tablet] 1 tab PO Q12HR #14 tab 06/14/19 [Rx] Ipratropium Blythe [Atrovent Hfa] 2 puff INHALATION TID #1 inhaler 06/14/19 [Rx] Nicotine 21Mg/24Hr Patch [Habitrol] 1 patch TRANSDERM DAILY #14 patch 06/14/19 [Rx] Follow up Appointment(s)/Referral(s): Yazmin Nascimento DO [Primary Care Provider] - 3 Days Dunae Wallace MD [STAFF PHYSICIAN] - 1 Week Patient Instructions/Handouts: COPD (Chronic Obstructive Pulmonary Disease) (DC) Activity/Diet/Wound Care/Special Instructions: dc after supper Discharge Disposition: HOME SELF-CARE
== END 2019-06-14 18:10 | disposition home or self-care (01) | DRG 191 ==
LOC: EC 11:37 → 4SSUR 15:22
PROVIDERS: ADMIT Hospitalist; ATTEND Hospitalist
DX: J44.1 Chronic obstructive pulmonary disease with (acute) exacerbation (principal); E87.2 Acidosis; F17.200 Nicotine dependence, unspecified, uncomplicated; R19.7 Diarrhea, unspecified; I10 Essential (primary) hypertension; E78.5 Hyperlipidemia, unspecified; E11.65 Type 2 diabetes mellitus with hyperglycemia; R55 Syncope and collapse; L72.3 Sebaceous cyst; F17.210 Nicotine dependence, cigarettes, uncomplicated; E11.42 Type 2 diabetes mellitus with diabetic polyneuropathy; E66.9 Obesity, unspecified; Z68.34 Body mass index [BMI] 34.0-34.9, adult; Z90.49 Acquired absence of other specified parts of digestive tract; M19.90 Unspecified osteoarthritis, unspecified site; Z79.84 Long term (current) use of oral hypoglycemic drugs; Z80.0 Family history of malignant neoplasm of digestive organs; Z82.49 Family history of ischemic heart disease and other diseases of the circulatory system; Z80.7 Family history of other malignant neoplasms of lymphoid, hematopoietic and related tissues; Z60.2 Problems related to living alone; Z71.6 Tobacco abuse counseling; Z79.82 Long term (current) use of aspirin; Z79.899 Other long term (current) drug therapy
CPT/HCPCS: 36415; 71046; 80053; 81001; 82565; 83605; 83735; 83880; 84484; 85025; 85610; 85730; 87040; 87077; 87186; 93005; 94640; 94760; 96361; 96365; 96367; 96375; 99285

== ENCOUNTER 2019-06-29 15:27 | Emergency (ER) | payer MEDICARE, OTHER ==
[2019-06-29 15:59] LABS: Basophils # (A) 0.1 k/uL (0-0.2); Basophils % (A) 1 %; Eosinophils # (A) 0.1 k/uL (0-0.7); Eosinophils % (A) 1 %; HCT 43.4 % (34.0-46.0); HGB 14.5 gm/dL (11.4-16.0); Lymphocytes # (A) 1.7 k/uL (1.0-4.8); Lymphocytes % (A) 20 %; MCH 31.8 pg (25.0-35.0); MCHC 33.3 g/dL (31.0-37.0); MCV 95.5 fL (80.0-100.0); Mean Platelet Volume 6.3; Monocytes # (A) 0.4 k/uL (0-1.0); Monocytes % (A) 5 %; Neutrophils # (A) 5.9 k/uL (1.3-7.7); Neutrophils % (A) 72 %; Platelet Count 266 k/uL (150-450); RBC 4.55 m/uL (3.80-5.40); RDW 12.9 % (11.5-15.5); WBC 8.2 k/uL (3.8-10.6)
[2019-06-29 16:06] LABS: ALT 29 U/L (9-52); AST 25 U/L (14-36); African American GFR (CKD) >90 (>60 ml/min/1.73 sqM); Albumin 4.2 g/dL (3.5-5.0); Alkaline Phosphatase 67 U/L (38-126); Anion Gap 14 mmol/L; Blood Urea Nitrogen 14 mg/dL (7-17); Calcium 9.7 mg/dL (8.4-10.2); Carbon Dioxide 23 mmol/L (22-30); Chloride 99 mmol/L (98-107); Glucose 231 mg/dL (74-99); Potassium 4.2 mmol/L (3.5-5.1); Sodium 136 mmol/L (137-145); Total Bilirubin 0.3 mg/dL (0.2-1.3); Total Protein 7.1 g/dL (6.3-8.2)
[2019-06-29 16:41] LABS: Appearance,Urine Clear (Clear); Bilirubin,Urine Negative (Negative); Blood,Urine Negative (Negative); Color,Urine Light Yellow; Glucose,Urine (UA) Negative (Negative); Ketones,Urine Negative (Negative); Leukocyte Esterase,Urine Negative (Negative); Nitrite,Urine Negative (Negative); PH, Urine 5.5 (5.0-8.0); Protein,Urine Negative (Negative); Specific Gravity,Urine 1.007 (1.001-1.035); Urobilinogen,Urine <2.0 mg/dL (<2.0)
--- NOTE | 2019-06-29 17:56 | ED ---
General Adult HPI - General Chief complaint: Dizziness Stated complaint: dizzy, shaking Time Seen by Provider: 06/29/19 17:34 Source: patient, RN notes reviewed Mode of arrival: wheelchair Limitations: no limitations - History of Present Illness Initial comments: 68-year-old female with a past medical history of diabetes, hyperlipidemia, hypertension, neuropathy presents for multiple complaints. It seems patient's chief complaint is dizziness. States over the past few days she feels like her vertigo his back. States she has had vertigo in the past but was told to stop her medication when she was released from the hospital 2 weeks ago. States that this is worse when she moves her head quickly. Denies any difficulty walking. Denies any nausea vomiting. States that she has also been shaking. States this started prior to her last admission several weeks ago. States that when she was to do something her handshakes more. Patient has no other complaints at this time including shortness of breath, chest pain, abdominal pain, nausea or vom iting, headache, or visual changes. - Related Data Home Medications Medication Instructions Recorded Confirmed Aspirin EC [Ecotrin Low Dose] 81 mg PO HS 06/12/19 06/29/19 Baclofen [Lioresal] 10 mg PO TID PRN 06/12/19 06/29/19 Benazepril HCl [Lotensin] 40 mg PO DAILY 06/12/19 06/29/19 Lovastatin [Mevacor] 40 mg PO HS 06/12/19 06/29/19 Multivit with Calcium,Iron,Min 1 tab PO DAILY 06/12/19 06/29/19 [Women's Multivitamin] glipiZIDE [Glucotrol] 10 mg PO AC-BID 06/12/19 06/29/19 metFORMIN HCL 1,000 mg PO BID 06/12/19 06/29/19 sitaGLIPtin PHOSPHATE [Januvia] 100 mg PO HS 06/12/19 06/29/19 Previous Rx's Medication Instructions Recorded Nicotine 21Mg/24Hr Patch [Habitrol] 1 patch TRANSDERM DAILY #14 patch 06/14/19 Meclizine [Antivert] 12.5 mg PO Q8HR PRN #20 tablet 06/29/19 Allergies Allergy/AdvReac Type Severity Reaction Status Date / Time No Known Allergies Allergy Verified 06/29/19 18:38 Review of Systems ROS Statement: Those systems with pertinent positive or pertinent negative responses have been documented in the HPI. ROS Other: All systems not noted in ROS Statement are negative. Past Medical History Past Medical History: Diabetes Mellitus, Hyperlipidemia, Hypertension Additional Past Medical History / Comment(s): neuropathy History of Any Multi-Drug Resistant Organisms: None Reported Past Surgical History: Cholecystectomy Additional Past Surgical History / Comment(s): umbilicus removed Past Anesthesia/Blood Transfusion Reactions: No Reported Reaction Past Psychological History: No Psychological Hx Reported Smoking Status: Current every day smoker Past Alcohol Use History: None Reported Past Drug Use History: None Reported - Past Family History Father Family Medical History: Myocardial Infarction ([place]) Additional Family Medical History / Comment(s): cardiac problems unknown Brother(s) Additional Family Medical History / Comment(s): CA multiple mylomia, Colon CA General Exam Limitations: no limitations General appearance: alert, in no apparent distress Head exam: Present: atraumatic, normocephalic, normal inspection Eye exam: Present: normal appearance, PERRL, EOMI. Absent: scleral icterus, conjunctival injection, periorbital swelling ENT exam: Present: normal exam, mucous membranes moist Neck exam: Present: normal inspection, full ROM. Absent: tenderness, meningismus, lymphadenopathy Respiratory exam: Present: normal lung sounds bilaterally. Absent: respiratory distress, wheezes, rales, rhonchi, stridor Cardiovascular Exam: Present: regular rate, normal rhythm, normal heart sounds. Absent: systolic murmur, diastolic murmur, rubs, gallop, clicks Neurological exam: Present: alert, oriented X3, CN II-XII intact, normal gait, other (GCS 15) Expanded Patient oriented to: Present: person, place, time Speech: Present: fluid speech Cranial nerves: EOM's Intact: Normal, Tongue Deviation: Normal, Nystagmus: Normal, Facial Sensation: Normal Cerebellar function: Finger to Nose: Normal, Romberg: Normal Upper motor neuron: Pronator Drift: Normal Sensory exam: Upper Extremity Light Touch: Normal, Upper Extremity Pin Prick: Normal, Lower Extremity Light Touch: Normal, Lower Extremity Pin Prick: Normal Motor strength exam: RUE: 5, LUE: 5, RLE: 5, LLE: 5 Eye Response: (4) open spontaneously Motor Response: (6) obeys commands Verbal Response: (5) oriented [place] Total: 15 Course Vital Signs 06/29/19 15:28 Temperature 97.7 F Pulse Rate 83 Respiratory 18 Rate Blood Pressure 156/66 O2 Sat by Pulse 97 Oximetry EKG Findings - EKG Comments: EKG Findings:: Normal sinus rhythm, ventricular rate 80, OH interval 128, QTC 419 Medical Decision Making - Medical Decision Making 68-year-old female with a past medical history of hypertension, diabetes presents for dizziness. This has been ongoing for the past few days. Patient has a history of vertigo was taken off her Antivert a couple weeks ago. It is unclear exactly why patient was taken off of this but possibly because she was having any symptoms of vertigo recently. She also complaining of neuropathy which is chronic as well as shaking in her hands that has been ongoing for weeks. Neurologic exam is unremarkable. Patient is ambulatory without ataxic gait. Moving her head worsens the symptoms. CBC CMP are unremarkable. EKG shows a normal sinus rhythm with a ventricular rate of 80. Upon it is negative. As patient has had a history of vertigo and there are no neurologic deficits CT was not obtained. At this time patient is doing better. She will be prescribed Antivert again but will follow up with primary care for refills. She will return here if she has any worsening symptoms. I discussed this case with attending Dr. Purvis who agrees with this assessment and treatment plan. - Lab Data Result diagrams: 06/29/19 15:43 06/29/19 15:43 Lab Results 06/29/19 06/29/19 06/29/19 Range/Units 15:43 15:43 15:43 WBC 8.2 (3.8-10.6) k/uL RBC 4.55 (3.80-5.40) m/uL Hgb 14.5 (11.4-16.0) gm/dL Hct 43.4 (34.0-46.0) % MCV 95.5 (80.0-100.0) fL MCH 31.8 (25.0-35.0) pg MCHC 33.3 (31.0-37.0) g/dL RDW 12.9 (11.5-15.5) % Plt Count 266 (150-450) k/uL Neutrophils % 72 % Lymphocytes % 20 % Monocytes % 5 % Eosinophils % 1 % Basophils % 1 % Neutrophils # 5.9 (1.3-7.7) k/uL Lymphocytes # 1.7 (1.0-4.8) k/uL Monocytes # 0.4 (0-1.0) k/uL Eosinophils # 0.1 (0-0.7) k/uL Basophils # 0.1 (0-0.2) k/uL Sodium 136 L (137-145) mmol/L Potassium 4.2 (3.5-5.1) mmol/L Chloride 99 (98-107) mmol/L Carbon Dioxide 23 (22-30) mmol/L Anion Gap 14 mmol/L BUN 14 (7-17) mg/dL Creatinine 0.66 (0.52-1.04) mg/dL Est GFR (CKD-EPI)AfAm >90 (>60 ml/min/1.73 sqM) Est GFR (CKD-EPI)NonAf >90 (>60 ml/min/1.73 sqM) Glucose 231 H (74-99) mg/dL Calcium 9.7 (8.4-10.2) mg/dL Total Bilirubin 0.3 (0.2-1.3) mg/dL AST 25 (14-36) U/L ALT 29 (9-52) U/L Alkaline Phosphatase 67 (38-126) U/L Troponin I <0.012 (0.000-0.034) ng/mL Total Protein 7.1 (6.3-8.2) g/dL Albumin 4.2 (3.5-5.0) g/dL Urine Color Urine Appearance (Clear) Urine pH (5.0-8.0) Ur Specific [place] (1.001-1.035) Urine Protein (Negative) Urine Glucose (UA) (Negative) Urine Ketones (Negative) Urine Blood (Negative) Urine Nitrite (Negative) Urine Bilirubin (Negative) Urine Urobilinogen (<2.0) mg/dL Ur Leukocyte Esterase (Negative) 06/29/19 Range/Units 16:27 WBC (3.8-10.6) k/uL RBC (3.80-5.40) m/uL Hgb (11.4-16.0) gm/dL Hct (34.0-46.0) % MCV (80.0-100.0) fL MCH (25.0-35.0) pg MCHC (31.0-37.0) g/dL RDW (11.5-15.5) % Plt Count (150-450) k/uL Neutrophils % % Lymphocytes % % Monocytes % % Eosinophils % % Basophils % % Neutrophils # (1.3-7.7) k/uL Lymphocytes # (1.0-4.8) k/uL Monocytes # (0-1.0) k/uL Eosinophils # (0-0.7) k/uL Basophils # (0-0.2) k/uL Sodium (137-145) mmol/L Potassium (3.5-5.1) mmol/L Chloride (98-107) mmol/L Carbon Dioxide (22-30) mmol/L Anion Gap mmol/L BUN (7-17) mg/dL Creatinine (0.52-1.04) mg/dL Est GFR (CKD-EPI)AfAm (>60 ml/min/1.73 sqM) Est GFR (CKD-EPI)NonAf (>60 ml/min/1.73 sqM) Glucose (74-99) mg/dL Calcium (8.4-10.2) mg/dL Total Bilirubin (0.2-1.3) mg/dL AST (14-36) U/L ALT (9-52) U/L Alkaline Phosphatase (38-126) U/L Troponin I (0.000-0.034) ng/mL Total Protein (6.3-8.2) g/dL Albumin (3.5-5.0) g/dL Urine Color Light Yellow Urine Appearance Clear (Clear) Urine pH 5.5 (5.0-8.0) Ur Specific [place] 1.007 (1.001-1.035) Urine Protein Negative (Negative) Urine Glucose (UA) Negative (Negative) Urine Ketones Negative (Negative) Urine Blood Negative (Negative) Urine Nitrite Negative (Negative) Urine Bilirubin Negative (Negative) Urine Urobilinogen <2.0 (<2.0) mg/dL Ur Leukocyte Esterase Negative (Negative) Disposition Clinical Impression: Vertigo Disposition: HOME SELF-CARE Condition: Good Instructions (If sedation given, give patient instructions): Dizziness (ED) Additional Instructions: Please take Antivert as directed. Please follow-up with primary care in 1-2 days. Please return here to the emergency department if you have any worsening symptoms. Prescriptions: Meclizine [Antivert] 12.5 mg PO Q8HR PRN #20 tablet PRN Reason: dizzy Is patient prescribed a controlled substance at d/c from ED?: No Referrals: Yazmin Nascimento DO [Primary Care Provider] - 1-2 days Time of Disposition: 18:26
[2019-06-29] MEDS ORDERED: MECLIZINE 12.5 MG TAB PO STA (18:26)
[2019-06-29 19:11] VITALS: BP 138/92; PULSE 741; RESP 8; TEMP 97.9
== END 2019-06-29 19:10 | disposition home or self-care (01) ==
LOC: EC 15:27
DX: R42 Dizziness and giddiness (principal); R25.9 Unspecified abnormal involuntary movements; E11.40 Type 2 diabetes mellitus with diabetic neuropathy, unspecified; E78.5 Hyperlipidemia, unspecified; I10 Essential (primary) hypertension; F17.200 Nicotine dependence, unspecified, uncomplicated; Z79.82 Long term (current) use of aspirin; Z79.84 Long term (current) use of oral hypoglycemic drugs; Z79.899 Other long term (current) drug therapy
CPT/HCPCS: 36415; 80053; 81003; 84484; 85025; 93005; 99284

== ENCOUNTER 2019-09-14 16:58 | Emergency (ER) | payer MEDICARE, OTHER ==
[2019-09-14] MEDS ORDERED: SODIUM CHLORIDE 0.9% 1,000 ML IV STA (17:29)
[2019-09-14] MEDS ORDERED: SODIUM CHLORIDE 0.9% 500 ML 500 ML IV STA (17:29)
--- NOTE | 2019-09-14 17:32 | ED ---
General Adult HPI - General Chief complaint: Recheck/Abnormal Lab/Rx Stated complaint: Dizziness/high sugar Time Seen by Provider: 09/14/19 17:09 Source: patient, RN notes reviewed Mode of arrival: ambulatory Limitations: no limitations - History of Present Illness Initial comments: Patient is a pleasant 69-year-old female presenting to the emergency department with concerns regarding high blood sugar. Patient states the last couple weeks her blood sugar has been in the mid 200s. Patient states there is one episode when blood sugar did go up to 300. Patient complains of some mild lightheadedness. Patient does have a mild cough that just started. No dyspnea. Cough is nonproductive. No fevers. No leg pain or leg swelling. Patient is on oral medication for diabetes. Patient does not take any insulin. No polyuria or polydipsia. - Related Data Home Medications Medication Instructions Recorded Confirmed Aspirin EC [Ecotrin Low Dose] 81 mg PO HS 06/12/19 06/29/19 Baclofen [Lioresal] 10 mg PO TID PRN 06/12/19 06/29/19 Benazepril HCl [Lotensin] 40 mg PO DAILY 06/12/19 06/29/19 Lovastatin [Mevacor] 40 mg PO HS 06/12/19 06/29/19 Multivit with Calcium,Iron,Min 1 tab PO DAILY 06/12/19 06/29/19 [Women's Multivitamin] glipiZIDE [Glucotrol] 10 mg PO AC-BID 06/12/19 06/29/19 metFORMIN HCL 1,000 mg PO BID 06/12/19 06/29/19 sitaGLIPtin PHOSPHATE [Januvia] 100 mg PO HS 06/12/19 06/29/19 Previous Rx's Medication Instructions Recorded Nicotine 21Mg/24Hr Patch [Habitrol] 1 patch TRANSDERM DAILY #14 patch 06/14/19 Meclizine [Antivert] 12.5 mg PO Q8HR PRN #20 tablet 06/29/19 Magnesium Oxide [Mag-Ox] 400 mg PO BID #8 tablet 09/14/19 Allergies Allergy/AdvReac Type Severity Reaction Status Date / Time No Known Allergies Allergy Verified 06/29/19 18:38 Review of Systems ROS Statement: Those systems with pertinent positive or pertinent negative responses have been documented in the HPI. ROS Other: All systems not noted in ROS Statement are negative. Constitutional: Denies: fever Eyes: Denies: eye pain ENT: Denies: ear pain Respiratory: Reports: cough. Denies: dyspnea Cardiovascular: Denies: chest pain Endocrine: Denies: fatigue Gastrointestinal: Denies: abdominal pain Genitourinary: Denies: dysuria Musculoskeletal: Denies: back pain Skin: Denies: rash Neurological: Denies: headache, weakness, confusion Psychiatric: Reports: anxiety Past Medical History Past Medical History: Diabetes Mellitus, Hyperlipidemia, Hypertension Additional Past Medical History / Comment(s): neuropathy History of Any Multi-Drug Resistant Organisms: None Reported Past Surgical History: Cholecystectomy Additional Past Surgical History / Comment(s): umbilicus removed Past Anesthesia/Blood Transfusion Reactions: No Reported Reaction Past Psychological History: No Psychological Hx Reported Smoking Status: Current every day smoker Past Alcohol Use History: None Reported Past Drug Use History: None Reported - Past Family History Father Family Medical History: Myocardial Infarction ([place]) Additional Family Medical History / Comment(s): cardiac problems unknown Brother(s) Additional Family Medical History / Comment(s): CA multiple mylomia, Colon CA General Exam Limitations: no limitations General appearance: alert, in no apparent distress Head exam: Present: normocephalic Eye exam: Present: normal appearance, PERRL, EOMI ENT exam: Present: normal oropharynx Neck exam: Present: normal inspection Respiratory exam: Present: normal lung sounds bilaterally Cardiovascular Exam: Present: regular rate, normal rhythm GI/Abdominal exam: Present: soft. Absent: tenderness Extremities exam: Present: normal inspection Neurological exam: Present: alert, oriented X3, CN II-XII intact. Absent: motor sensory deficit Expanded Neurological exam: Present: protecting the airway Speech: Present: fluid speech Cranial nerves: EOM's Intact: Normal Motor strength exam: RUE: 5, LUE: 5, RLE: 5, LLE: 5 Eye Response: (4) open spontaneously Motor Response: (6) obeys commands Verbal Response: (5) oriented Psychiatric exam: Present: normal affect, normal mood Skin exam: Present: normal color Course Vital Signs 09/14/19 17:05 Temperature 97.6 F Pulse Rate 92 Respiratory 18 Rate Blood Pressure 151/84 O2 Sat by Pulse 97 Oximetry EKG Findings - EKG Comments: EKG Findings:: Normal sinus rhythm 87. UT 138. QRS 94. QT 344. QTC 413. N ormal axis. Normal QRS. No acute ST change. Medical Decision Making - Medical Decision Making Patient reevaluated and updated. Blood sugar on repeat was 203 - Lab Data Result diagrams: 09/14/19 17:35 09/14/19 17:35 Lab Results 09/14/19 09/14/19 09/14/19 Range/Units 17:32 17:35 17:35 WBC 9.1 (3.8-10.6) k/uL RBC 4.55 (3.80-5.40) m/uL Hgb 14.6 (11.4-16.0) gm/dL Hct 42.8 (34.0-46.0) % MCV 94.0 (80.0-100.0) fL MCH 32.2 (25.0-35.0) pg MCHC 34.3 (31.0-37.0) g/dL RDW 12.2 (11.5-15.5) % Plt Count 348 (150-450) k/uL Neutrophils % 73 % Lymphocytes % 19 % Monocytes % 5 % Eosinophils % 1 % Basophils % 0 % Neutrophils # 6.6 (1.3-7.7) k/uL Lymphocytes # 1.7 (1.0-4.8) k/uL Monocytes # 0.5 (0-1.0) k/uL Eosinophils # 0.1 (0-0.7) k/uL Basophils # 0.0 (0-0.2) k/uL Sodium 131 L (137-145) mmol/L Potassium 4.5 (3.5-5.1) mmol/L Chloride 97 L (98-107) mmol/L Carbon Dioxide 21 L (22-30) mmol/L Anion Gap 13 mmol/L BUN 14 (7-17) mg/dL Creatinine 0.59 (0.52-1.04) mg/dL Est GFR (CKD-EPI)AfAm >90 (>60 ml/min/1.73 sqM) Est GFR (CKD-EPI)NonAf >90 (>60 ml/min/1.73 sqM) Glucose 243 H (74-99) mg/dL POC Glucose (mg/dL) 237 H (75-99) mg/dL POC Glu Child Care Group Leader ID Val Swenson Calcium 9.8 (8.4-10.2) mg/dL Magnesium 1.3 L (1.6-2.3) mg/dL Total Bilirubin 0.5 (0.2-1.3) mg/dL AST 20 (14-36) U/L ALT 23 (9-52) U/L Alkaline Phosphatase 86 (38-126) U/L Total Protein 7.2 (6.3-8.2) g/dL Albumin 4.4 (3.5-5.0) g/dL Urine Color Urine Appearance (Clear) Urine pH (5.0-8.0) Ur Specific [place] (1.001-1.035) Urine Protein (Negative) Urine Glucose (UA) (Negative) Urine Ketones (Negative) Urine Blood (Negative) Urine Nitrite (Negative) Urine Bilirubin (Negative) Urine Urobilinogen (<2.0) mg/dL Ur Leukocyte Esterase (Negative) Urine RBC (0-5) /hpf Urine WBC (0-5) /hpf Ur Squamous Epith Cells (0-4) /hpf Urine Bacteria (None) /hpf Acetone, Qual Negative (Negative) 09/14/19 09/14/19 Range/Units 18:25 19:24 WBC (3.8-10.6) k/uL RBC (3.80-5.40) m/uL Hgb (11.4-16.0) gm/dL Hct (34.0-46.0) % MCV (80.0-100.0) fL MCH (25.0-35.0) pg MCHC (31.0-37.0) g/dL RDW (11.5-15.5) % Plt Count (150-450) k/uL Neutrophils % % Lymphocytes % % Monocytes % % Eosinophils % % Basophils % % Neutrophils # (1.3-7.7) k/uL Lymphocytes # (1.0-4.8) k/uL Monocytes # (0-1.0) k/uL Eosinophils # (0-0.7) k/uL Basophils # (0-0.2) k/uL Sodium (137-145) mmol/L Potassium (3.5-5.1) mmol/L Chloride (98-107) mmol/L Carbon Dioxide (22-30) mmol/L Anion Gap mmol/L BUN (7-17) mg/dL Creatinine (0.52-1.04) mg/dL Est GFR (CKD-EPI)AfAm (>60 ml/min/1.73 sqM) Est GFR (CKD-EPI)NonAf (>60 ml/min/1.73 sqM) Glucose (74-99) mg/dL POC Glucose (mg/dL) 203 H (75-99) mg/dL POC Glu Child Care Group Leader Jacki Conner Calcium (8.4-10.2) mg/dL Magnesium (1.6-2.3) mg/dL Total Bilirubin (0.2-1.3) mg/dL AST (14-36) U/L ALT (9-52) U/L Alkaline Phosphatase (38-126) U/L Total Protein (6.3-8.2) g/dL Albumin (3.5-5.0) g/dL Urine Color Light Yellow Urine Appearance Clear (Clear) Urine pH 5.5 (5.0-8.0) Ur Specific [place] 1.003 (1.001-1.035) Urine Protein Negative (Negative) Urine Glucose (UA) Negative (Negative) Urine Ketones Negative (Negative) Urine Blood Negative (Negative) Urine Nitrite Negative (Negative) Urine Bilirubin Negative (Negative) Urine Urobilinogen <2.0 (<2.0) mg/dL Ur Leukocyte Esterase Trace H (Negative) Urine RBC <1 (0-5) /hpf Urine WBC 1 (0-5) /hpf Ur Squamous Epith Cells 1 (0-4) /hpf Urine Bacteria Rare H (None) /hpf Acetone, Qual (Negative) Disposition Clinical Impression: Hyperglycemia, Hypomagnesemia Disposition: HOME SELF-CARE Condition: Stable Instructions (If sedation given, give patient instructions): Diabetic Hyperglycemia (ED), Hypomagnesemia (ED) Additional Instructions: Please follow-up to primary care physician in the next couple days for recheck. He will need to have her blood sugar recheck as well as your magnesium level. Return for uncontrolled blood sugar, weakness, increased thirst or urination, worsening symptoms or other concerns. Magnesium prescriptions sent to [facility] pharmacy for the next 4 days. Prescriptions: Magnesium Oxide [Mag-Ox] 400 mg PO BID #8 tablet Is patient prescribed a controlled substance at d/c from ED?: No Referrals: Yazmin Nascimento DO [Primary Care Provider] - 1-2 days Time of Disposition: 19:36
[2019-09-14 17:33] LABS: Glucose,Whole Blood 237 mg/dL (75-99)
[2019-09-14 17:53] LABS: Basophils % (A) 0 %; Eosinophils # (A) 0.1 k/uL (0-0.7); Eosinophils % (A) 1 %; HCT 42.8 % (34.0-46.0); HGB 14.6 gm/dL (11.4-16.0); Lymphocytes # (A) 1.7 k/uL (1.0-4.8); Lymphocytes % (A) 19 %; MCH 32.2 pg (25.0-35.0); MCHC 34.3 g/dL (31.0-37.0); Mean Platelet Volume 6.8; Monocytes # (A) 0.5 k/uL (0-1.0); Monocytes % (A) 5 %; Neutrophils # (A) 6.6 k/uL (1.3-7.7); Neutrophils % (A) 73 %; Platelet Count 348 k/uL (150-450); RBC 4.55 m/uL (3.80-5.40); RDW 12.2 % (11.5-15.5); WBC 9.1 k/uL (3.8-10.6)
[2019-09-14 18:15] LABS: ALT 23 U/L (9-52); AST 20 U/L (14-36); African American GFR (CKD) >90 (>60 ml/min/1.73 sqM); Albumin 4.4 g/dL (3.5-5.0); Alkaline Phosphatase 86 U/L (38-126); Anion Gap 13 mmol/L; Blood Urea Nitrogen 14 mg/dL (7-17); Calcium 9.8 mg/dL (8.4-10.2); Carbon Dioxide 21 mmol/L (22-30); Chloride 97 mmol/L (98-107); Glucose 243 mg/dL (74-99); Magnesium 1.3 mg/dL (1.6-2.3); Non-African American GFR(CKD) >90 (>60 ml/min/1.73 sqM); Potassium 4.5 mmol/L (3.5-5.1); Sodium 131 mmol/L (137-145); Total Bilirubin 0.5 mg/dL (0.2-1.3); Total Protein 7.2 g/dL (6.3-8.2)
[2019-09-14] MEDS ORDERED: MAGNESIUM OXIDE 400 MG TAB PO STA (18:46)
[2019-09-14 18:55] LABS: Appearance,Urine Clear (Clear); Bacteria,Urine Rare /hpf; Bilirubin,Urine Negative (Negative); Blood,Urine Negative (Negative); Color,Urine Light Yellow; Glucose,Urine (UA) Negative (Negative); Ketones,Urine Negative (Negative); Leukocyte Esterase,Urine Trace (Negative); Nitrite,Urine Negative (Negative); PH, Urine 5.5 (5.0-8.0); Protein,Urine Negative (Negative); RBC,Urine <1 /hpf (0-5); Specific Gravity,Urine 1.003 (1.001-1.035); Squamous Epithelial Cell,Urine 1 /hpf (0-4); Urobilinogen,Urine <2.0 mg/dL (<2.0)
[2019-09-14 19:26] LABS: Glucose,Whole Blood 203 mg/dL (75-99)
[2019-09-14 20:35] VITALS: BP 145/68; PULSE 82; RESP 20; TEMP 98.2
== END 2019-09-14 20:37 | disposition home or self-care (01) ==
LOC: EC 16:58
DX: E11.65 Type 2 diabetes mellitus with hyperglycemia (principal); E83.42 Hypomagnesemia; R05 Cough; E11.40 Type 2 diabetes mellitus with diabetic neuropathy, unspecified; E78.5 Hyperlipidemia, unspecified; I10 Essential (primary) hypertension; F17.200 Nicotine dependence, unspecified, uncomplicated; Z79.82 Long term (current) use of aspirin; Z79.84 Long term (current) use of oral hypoglycemic drugs; Z79.899 Other long term (current) drug therapy
CPT/HCPCS: 36415; 80053; 81001; 82009; 83735; 85025; 93005; 96360; 96361; 99285

== ENCOUNTER → 2019-10-22 | Outpatient (CLI) | payer MEDICARE, OTHER ==
[2019-10-22 08:39] LABS: Basophils % (A) 1 %; Eosinophils # (A) 0.1 k/uL (0-0.7); Eosinophils % (A) 2 %; HCT 45.4 % (34.0-46.0); HGB 14.1 gm/dL (11.4-16.0); Lymphocytes # (A) 1.6 k/uL (1.0-4.8); Lymphocytes % (A) 23 %; MCH 30.2 pg (25.0-35.0); MCHC 31.1 g/dL (31.0-37.0); MCV 97.1 fL (80.0-100.0); Mean Platelet Volume 6.6; Monocytes # (A) 0.4 k/uL (0-1.0); Monocytes % (A) 6 %; Neutrophils # (A) 4.4 k/uL (1.3-7.7); Neutrophils % (A) 67 %; Platelet Count 324 k/uL (150-450); RBC 4.68 m/uL (3.80-5.40); RDW 12.7 % (11.5-15.5); WBC 6.7 k/uL (3.8-10.6)
[2019-10-22 17:08] LABS: Protein, Total 6.6 g/dL (6.2-8.2)
[2019-10-26 13:20] LABS: Albumin 3.74 g/dL (3.80-4.90); Gamma Globulin 0.51 g/dL (0.70-1.50)
== END | disposition home or self-care (01) ==
LOC: LABWHC1 08:09
PROVIDERS: ATTEND Psychiatry & Neurology Neurology
DX: G62.9 Polyneuropathy, unspecified (principal)
CPT/HCPCS: 36415; 82607; 84165; 84207; 85025; 86038; 86334

== ENCOUNTER → 2020-10-31 | Outpatient (CLI) | payer MEDICARE, OTHER ==
[2020-10-31 16:39] LABS: Anion Gap 14.6 mmol/L (4.00-12.00); Calcium 9.4 mg/dL (8.7-10.3); Carbon Dioxide 22.4 mmol/L (21.6-31.8); Non-African American GFR(CKD) 74.2 (60.0-200.0); Potassium 5.3 mmol/L (3.5-5.5)
[2020-10-31 18:00] LABS: Hemoglobin A1C 7.5 % (4.0-6.0)
== END | disposition home or self-care (01) ==
LOC: LABWHC1 09:30
PROVIDERS: ATTEND Family Medicine
DX: I10 Essential (primary) hypertension (principal); E11.9 Type 2 diabetes mellitus without complications
CPT/HCPCS: 36415; 80048; 83036

== ENCOUNTER → 2021-01-27 | Outpatient (CLI) | payer MEDICARE, OTHER | END | disposition home or self-care (01) | LOC: LABWHC1 10:47 | PROVIDERS: ATTEND Psychiatry & Neurology Neurology | DX: R89.9 Unspecified abnormal finding in specimens from other organs, systems and tissues (principal) | CPT/HCPCS: 36415; 86334 ==

== ENCOUNTER 2022-06-18 15:51 | Emergency (ER) | payer MEDICARE, OTHER ==
[2022-06-18 16:50] VITALS: TEMP 99.5
[2022-06-18 18:15] LABS: Basophils # (A) 0.1 k/uL (0-0.2); Basophils % (A) 2 %; Eosinophils # (A) 0.1 k/uL (0-0.7); Eosinophils % (A) 1 %; HCT 43.1 % (34.0-46.0); HGB 14.1 gm/dL (11.4-16.0); Lymphocytes # (A) 0.2 k/uL (1.0-4.8); Lymphocytes % (A) 3 %; MCH 31.8 pg (25.0-35.0); MCHC 32.6 g/dL (31.0-37.0); MCV 97.4 fL (80.0-100.0); Mean Platelet Volume 6.6; Monocytes # (A) 0.5 k/uL (0-1.0); Monocytes % (A) 6 %; Neutrophils # (A) 6.2 k/uL (1.3-7.7); Neutrophils % (A) 87 %; Platelet Count 243 k/uL (150-450); RBC 4.43 m/uL (3.80-5.40); RDW 12.6 % (11.5-15.5); WBC 7.1 k/uL (3.8-10.6)
[2022-06-18 18:28] LABS: ALT 18 U/L (4-34); AST 24 U/L (14-36); African American GFR (CKD) >90 (>60 ml/min/1.73 sqM); Albumin 4.3 g/dL (3.5-5.0); Alkaline Phosphatase 60 U/L (38-126); Anion Gap 10 mmol/L; Blood Urea Nitrogen 19 mg/dL (7-17); Calcium 9.6 mg/dL (8.4-10.2); Carbon Dioxide 27 mmol/L (22-30); Chloride 95 mmol/L (98-107); Glucose 153 mg/dL (74-99); Non-African American GFR(CKD) 88 (>60 ml/min/1.73 sqM); Potassium 4.9 mmol/L (3.5-5.1); Sodium 132 mmol/L (137-145); Total Bilirubin 0.2 mg/dL (0.2-1.3); Total Protein 6.9 g/dL (6.3-8.2)
[2022-06-18 20:46] VITALS: BP 142/61; PULSE 70; RESP 17
[2022-06-18] MEDS ORDERED: IBUPROFEN 600 MG TAB PO STA (21:18)
[2022-06-18] MEDS ORDERED: ACETAMINOPHEN TAB 325 MG TAB PO STA (21:18)
[2022-06-18] MEDS ORDERED: SODIUM CHLORIDE 0.9% 1,000 ML IV ONE (21:41)
--- NOTE | 2022-06-18 22:15 | XR ---
EXAMINATION TYPE: XR chest 2V DATE OF EXAM: 06/18/2022 COMPARISON: NONE HISTORY: Fever TECHNIQUE: FINDINGS: Heart and mediastinum are normal. Lungs are clear. Diaphragm is normal. Bony thorax IMPRESSION: No cardiopulmonary disease.
--- NOTE | 2022-06-18 22:27 | XR ---
EXAMINATION TYPE: XR knee complete LT DATE OF EXAM: 06/18/2022 COMPARISON: NONE HISTORY: Pain TECHNIQUE: 3 views FINDINGS: There is some narrowing of the medial joint space. There is spurring of the medial femoral and tibial condyles. I see no fracture nor dislocation. IMPRESSION: Mild osteoarthritis. No fracture seen.
--- NOTE | 2022-06-18 22:41 | CT ---
EXAMINATION TYPE: CT brain cheryl juarez con DATE OF EXAM: 06/18/2022 COMPARISON: None HISTORY: dizziness and falls CT DLP: 1449.9 mGycm Automated exposure control for dose reduction was used. Images of brain and cervical spine obtained with no contrast. There is large area of fluid density involving the left cerebral hemisphere in the middle cranial fos sa that measures 11 x 4.6 cm. There is some mass effect. The midline is shifted to the right side wit h some mild effacement of the right lateral ventricle. No evidence of intracranial hemorrhage. The skull base is intact. The calvarium is intact. The cervical vertebra have normal alignment. There is degenerative disc space narrowing at C6-7 with spurring of the endplates. Posterior element are intact. Facet joints are intact. IMPRESSION: There is a large cystic fluid collection in the left cerebral hemisphere with mass effect. This is co nsistent with subdural hygroma or arachnoid cyst with some effacement of the left lateral ventricle. No evidence of any significant cerebral edema. Spondylotic changes at C6-7. No cervical spine fracture.
--- NOTE | 2022-06-18 23:12 | ED ---
Dizziness HPI - General Source: patient Mode of arrival: EMS Limitations: no limitations <Artie Clrak - Last Filed: 06/18/22 23:33> <Conor John - Last Filed: 06/19/22 00:02> - General Chief Complaint: Dizziness Stated Complaint: flu like symptoms Time Seen by Provider: 06/18/22 20:32 - History of Present Illness Initial Comments: Patient is a 71-year-old female presenting with chief complaint of generalized weakness. Patient states that for the last 3 days she has felt generally weak, she has had some difficulty getting in and out of her chair. Patient was feeling dizzy today and had some nausea. Patient did have a fall today, her family saw her on the floor when they got to her house. She denies any head injury or loss of consciousness. No blood thinners. Patient noted she had a mild fever today with EMS came and took her temperature before bringing her here. She is complaining of left knee pain that has been ongoing for 3 months. She denies any chest pain, shortness of breath, vomiting, headache, vision or hearing changes, neck pain or stiffness, abdominal pain, diarrhea, hematochezia, melena. (Artie Clark) - Related Data Home Medications Medication Instructions Recorded Confirmed Aspirin EC [Ecotrin Low Dose] 81 mg PO HS 06/12/19 06/29/19 Baclofen [Lioresal] 10 mg PO TID PRN 06/12/19 06/29/19 Benazepril HCl [Lotensin] 40 mg PO DAILY 06/12/19 06/29/19 Lovastatin [Mevacor] 40 mg PO HS 06/12/19 06/29/19 Multivit with Calcium,Iron,Min 1 tab PO DAILY 06/12/19 06/29/19 [Women's Multivitamin] glipiZIDE [Glucotrol] 10 mg PO AC-BID 06/12/19 06/29/19 metFORMIN HCL 1,000 mg PO BID 06/12/19 06/29/19 sitaGLIPtin PHOSPHATE [Januvia] 100 mg PO HS 06/12/19 06/29/19 Previous Rx's Medication Instructions Recorded Nicotine 21Mg/24Hr Patch [Habitrol] 1 patch TRANSDERM DAILY #14 patch 06/14/19 Meclizine [Antivert] 12.5 mg PO Q8HR PRN #20 tablet 06/29/19 Magnesium Oxide [Mag-Ox] 400 mg PO BID #8 tablet 09/14/19 Allergies Allergy/AdvReac Type Severity Reaction Status Date / Time No Known Allergies Allergy Verified 06/18/22 16:50 Review of Systems ROS Other: All systems not noted in ROS Statement are negative. <Artie Clark - Last Filed: 06/18/22 23:33> ROS Other: All systems not noted in ROS Statement are negative. <AlvaroConor - Last Filed: 06/19/22 00:02> ROS Statement: Those systems with pertinent positive or pertinent negative responses have been documented in the HPI. Past Medical History Past Medical History: Diabetes Mellitus, Hyperlipidemia, Hypertension Additional Past Medical History / Comment(s): neuropathy History of Any Multi-Drug Resistant Organisms: None Reported Past Surgical History: Cholecystectomy Additional Past Surgical History / Comment(s): umbilicus removed Past Anesthesia/Blood Transfusion Reactions: No Reported Reaction Past Psychological History: No Psychological Hx Reported Smoking Status: Current every day smoker Past Alcohol Use History: None Reported Past Drug Use History: None Reported - Past Family History Father Family Medical History: Myocardial Infarction ([place]) Additional Family Medical History / Comment(s): cardiac problems unknown Brother(s) Additional Family Medical History / Comment(s): CA multiple mylomia, Colon CA <Artie Clark - Last Filed: 06/18/22 23:33> General Exam Limitations: no limitations General appearance: alert, in no apparent distress Head exam: Present: atraumatic, normocephalic, normal inspection Eye exam: Present: normal appearance, PERRL, EOMI. Absent: scleral icterus, periorbital swelling Pupils: Present: normal accommodation Neck exam: Present: normal inspection. Absent: tenderness Respiratory exam: Present: normal lung sounds bilaterally. Absent: respiratory distress, wheezes, rales, rhonchi, stridor Cardiovascular Exam: Present: regular rate, normal rhythm, normal heart sounds. Absent: systolic murmur, diastolic murmur, rubs, gallop, clicks Neurological exam: Present: alert, oriented X3, CN II-XII intact Expanded Patient oriented to: Present: person, place, time Speech: Present: fluid speech Cranial nerves: EOM's Intact: Normal, Facial Sensation: Normal Cerebellar function: Finger to Nose: Normal Sensory exam: Upper Extremity Light Touch: Normal, Lower Extremity Light Touch: Normal Motor strength exam: RUE: 5, LUE: 5, RLE: 5, LLE: 5 Eye Response: (4) open spontaneously Motor Response: (6) obeys commands Verbal Response: (5) oriented [place] Total: 15 Psychiatric exam: Present: normal affect, normal mood Skin exam: Present: warm, dry, intact, normal color. Absent: rash <Artie Clark - Last Filed: 06/18/22 23:33> Course Vital Signs 06/18/22 06/18/22 16:46 20:45 Temperature 99.5 F Pulse Rate 87 70 Respiratory 18 17 Rate Blood Pressure 123/61 142/61 O2 Sat by Pulse 92 L 98 Oximetry Medical Decision Making - Lab Data Result diagrams: 06/18/22 18:11 06/18/22 18:11 <Artie Clark - Last Filed: 06/18/22 23:33> - Lab Data Result diagrams: 06/18/22 18:11 06/18/22 18:11 <Conor John - Last Filed: 06/19/22 00:02> - Medical Decision Making Patient is a 71-year-old female presenting with chief complaint of generalized weakness. She also admits to fever, nausea, intermittent dizziness, left knee pain. Patient had a fall at home today, she lives alone, denies loss of consciousness or blood thinners. On examination there are no focal neurological deficits and heart and lungs are clear to auscultation. No leukocytosis or anemia. Sodium 132. Troponin less than 0.012. Patient is positive for coronavirus. CT shows large cystic fluid collection in the left cerebral hemisphere with mass effect consistent with subdural hygroma or arachnoid cyst with some effacement of the left lateral ventricle. Spondylytic changes at C6 through 7, no cervical spine fracture. Patient endorses history of "fluid on brain" states that she previously followed with neurology in [place] for monitoring. (Artie Clark) The CT results showing large arachnoid cyst versus hygroma was discussed with Dr. Arriaga, covering for neurosurgery at [facility], recommends outpatient follow-up no urgent evaluation needed. (Conor John) - Lab Data Lab Results 06/18/22 06/18/22 06/18/22 Range/Units 18:11 18:11 18:11 WBC 7.1 (3.8-10.6) k/uL RBC 4.43 (3.80-5.40) m/uL Hgb 14.1 (11.4-16.0) gm/dL Hct 43.1 (34.0-46.0) % MCV 97.4 (80.0-100.0) fL MCH 31.8 (25.0-35.0) pg MCHC 32.6 (31.0-37.0) g/dL RDW 12.6 (11.5-15.5) % Plt Count 243 (150-450) k/uL MPV 6.6 Neutrophils % 87 % Lymphocytes % 3 % Monocytes % 6 % Eosinophils % 1 % Basophils % 2 % Neutrophils # 6.2 (1.3-7.7) k/uL Lymphocytes # 0.2 L (1.0-4.8) k/uL Monocytes # 0.5 (0-1.0) k/uL Eosinophils # 0.1 (0-0.7) k/uL Basophils # 0.1 (0-0.2) k/uL Sodium 132 L (137-145) mmol/L Potassium 4.9 (3.5-5.1) mmol/L Chloride 95 L (98-107) mmol/L Carbon Dioxide 27 (22-30) mmol/L Anion Gap 10 mmol/L BUN 19 H (7-17) mg/dL Creatinine 0.68 (0.52-1.04) mg/dL Est GFR (CKD-EPI)AfAm >90 (>60 ml/min/1.73 sqM) Est GFR (CKD-EPI)NonAf 88 (>60 ml/min/1.73 sqM) Glucose 153 H (74-99) mg/dL Calcium 9.6 (8.4-10.2) mg/dL Total Bilirubin 0.2 (0.2-1.3) mg/dL AST 24 (14-36) U/L ALT 18 (4-34) U/L Alkaline Phosphatase 60 (38-126) U/L Troponin I <0.012 (0.000-0.034) ng/mL Total Protein 6.9 (6.3-8.2) g/dL Albumin 4.3 (3.5-5.0) g/dL Urine Color Urine Appearance (Clear) Urine pH (5.0-8.0) Ur Specific [place] (1.001-1.035) Urine Protein (Negative) Urine Glucose (UA) (Negative) Urine Ketones (Negative) Urine Blood (Negative) Urine Nitrite (Negative) Urine Bilirubin (Negative) Urine Urobilinogen (<2.0) mg/dL Ur Leukocyte Esterase (Negative) Urine RBC (0-5) /hpf Urine WBC (0-5) /hpf Urine WBC Clumps (None) /hpf Ur Squamous Epith Cells (0-4) /hpf Urine Bacteria (None) /hpf Urine Mucus (None) /hpf Coronavirus (PCR) (Not Detectd) Influenza Type A RNA (Not Detectd) Influenza Type B (PCR) (Not Detectd) 06/18/22 06/18/22 06/18/22 Range/Units 20:48 20:48 23:16 WBC (3.8-10.6) k/uL RBC (3.80-5.40) m/uL Hgb (11.4-16.0) gm/dL Hct (34.0-46.0) % MCV (80.0-100.0) fL MCH (25.0-35.0) pg MCHC (31.0-37.0) g/dL RDW (11.5-15.5) % Plt Count (150-450) k/uL MPV Neutrophils % % Lymphocytes % % Monocytes % % Eosinophils % % Basophils % % Neutrophils # (1.3-7.7) k/uL Lymphocytes # (1.0-4.8) k/uL Monocytes # (0-1.0) k/uL Eosinophils # (0-0.7) k/uL Basophils # (0-0.2) k/uL Sodium (137-145) mmol/L Potassium (3.5-5.1) mmol/L Chloride (98-107) mmol/L Carbon Dioxide (22-30) mmol/L Anion Gap mmol/L BUN (7-17) mg/dL Creatinine (0.52-1.04) mg/dL Est GFR (CKD-EPI)AfAm (>60 ml/min/1.73 sqM) Est GFR (CKD-EPI)NonAf (>60 ml/min/1.73 sqM) Glucose (74-99) mg/dL Calcium (8.4-10.2) mg/dL Total Bilirubin (0.2-1.3) mg/dL AST (14-36) U/L ALT (4-34) U/L Alkaline Phosphatase (38-126) U/L Troponin I (0.000-0.034) ng/mL Total Protein (6.3-8.2) g/dL Albumin (3.5-5.0) g/dL Urine Color Light Yellow Urine Appearance Cloudy H (Clear) Urine pH 5.5 (5.0-8.0) Ur Specific [place] 1.013 (1.001-1.035) Urine Protein Trace H (Negative) Urine Glucose (UA) Negative (Negative) Urine Ketones Negative (Negative) Urine Blood Small H (Negative) Urine Nitrite Positive H (Negative) Urine Bilirubin Negative (Negative) Urine Urobilinogen <2.0 (<2.0) mg/dL Ur Leukocyte Esterase Small H (Negative) Urine RBC 1 (0-5) /hpf Urine WBC 8 H (0-5) /hpf Urine WBC Clumps Rare H (None) /hpf Ur Squamous Epith Cells 3 (0-4) /hpf Urine Bacteria Many H (None) /hpf Urine Mucus Rare H (None) /hpf Coronavirus (PCR) Detected A (Not Detectd) Influenza Type A RNA Not Detected (Not Detectd) Influenza Type B (PCR) Not Detected (Not Detectd) Disposition <Artie Clark - Last Filed: 06/18/22 23:33> Is patient prescribed a controlled substance at d/c from ED?: No Time of Disposition: 00:02 <Conor John - Last Filed: 06/19/22 00:02> Clinical Impression: COVID-19, Arachnoid cyst Disposition: HOME SELF-CARE Condition: Fair Instructions (If sedation given, give patient instructions): COVID-19 (Coronavirus Disease 2019) (ED) Referrals: Yazmin Nascimento DO [Primary Care Provider] - 1-2 days
[2022-06-18 23:28] LABS: Appearance,Urine Cloudy (Clear); Bacteria,Urine Many /hpf; Bilirubin,Urine Negative (Negative); Blood,Urine Small (Negative); Color,Urine Light Yellow; Glucose,Urine (UA) Negative (Negative); Ketones,Urine Negative (Negative); Leukocyte Esterase,Urine Small (Negative); Mucus,Urine Rare /hpf; Nitrite,Urine Positive (Negative); PH, Urine 5.5 (5.0-8.0); Protein,Urine Trace (Negative); RBC,Urine 1 /hpf (0-5); Specific Gravity,Urine 1.013 (1.001-1.035); Squamous Epithelial Cell,Urine 3 /hpf (0-4); Urobilinogen,Urine <2.0 mg/dL (<2.0); WBC,Urine 8 /hpf (0-5)
== END 2022-06-19 00:28 | disposition home or self-care (01) ==
LOC: EC 15:51
DX: U07.1 COVID-19 (principal); G93.0 Cerebral cysts; E78.5 Hyperlipidemia, unspecified; E11.9 Type 2 diabetes mellitus without complications; I10 Essential (primary) hypertension; F17.200 Nicotine dependence, unspecified, uncomplicated
CPT/HCPCS: 36415; 70450; 71046; 72125; 80053; 81001; 84484; 85025; 87502; 87635; 93005; 96360; 99285

== ENCOUNTER → 2022-07-30 | Outpatient (CLI) | payer MEDICARE, OTHER ==
--- NOTE | 2022-07-30 13:08 | MR ---
EXAMINATION TYPE: MR knee LT wo con DATE OF EXAM: 07/30/2022 COMPARISON: Plain film 06/29/2022 HISTORY: L knee pain TECHNIQUE: Multiplanar, multisequence imaging of the left knee is performed without IV contrast. FINDINGS: MEDIAL MENISCUS: Posterior horn of the medial meniscus shows abnormal increased intrinsic signal, sag ittal image 26 and 27, there is some volume loss noted, sagittal image 33, coronal image #21. The helga t anchor is not well defined on coronal images, appears attenuated LATERAL MENISCUS: Anterior and posterior horns are intact without tear. CRUCIATE LIGAMENTS: The anterior and posterior cruciate ligaments are intact and unremarkable. COLLATERAL LIGAMENTS: The medial collateral ligament and lateral collateral ligament complex are inta ct and unremarkable. EXTENSOR MECHANISM: Visualized quadriceps and patellar tendons are intact. 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 OTHER: Diffuse subcutaneous edema changes are present. IMPRESSION: Findings consistent with tear the posterior horn the medial meniscus, possibly chronic, degenerative, there are osteoarthritic changes, extensive subcutaneous edema, small Evans's cyst
== END | disposition home or self-care (01) ==
LOC: RADMRIMAIN 10:14
PROVIDERS: ATTEND Orthopaedic Surgery
DX: M17.12 Unilateral primary osteoarthritis, left knee (principal); M71.22 Synovial cyst of popliteal space [Baker], left knee

== ENCOUNTER → 2023-01-04 | Outpatient (CLI) | payer MEDICARE, OTHER ==
[2023-01-04 15:09] LABS: Protein, Total 7.3 g/dL (6.2-8.2)
[2023-01-04 15:27] LABS: ALT 18 U/L (8-44); AST 18 U/L (13-35); African American GFR (CKD) 90.3 (60.0-200.0); Albumin 4.3 g/dL (3.8-4.9); Albumin/Globulin Ratio 1.52 (1.60-3.17); Alkaline Phosphatase 63 U/L (41-126); BUN/Creat Ratio 20.69 Ratio (12.00-20.00); Blood Urea Nitrogen 15.7 mg/dL (9.0-27.0); Carbon Dioxide 29.9 mmol/L (20.0-27.5); Chloride 98 mmol/L (96-109); Globulin 2.8 g/dL (1.6-3.3); Glucose 121 mg/dL (70-110); Non-African American GFR(CKD) 77.9 (60.0-200.0); Sodium 140 mmol/L (135-145); Total Protein 7.1 g/dL (6.2-8.2)
[2023-01-04 15:59] LABS: Basophils # (A) 0.08 X 10*3/uL (0.00-0.10); Basophils % (A) 1.1 %; Eosinophils # (A) 0.15 X 10*3/uL (0.04-0.35); HCT 42.6 % (37.2-46.3); HGB 14.7 g/dL (12.0-15.0); Immature Grans, Automated 0.4 %; Lymphocytes # (A) 1.99 X 10*3/uL (0.90-5.00); Lymphocytes % (A) 27.1 %; MCHC 34.5 g/dL (32.0-37.0); MCV 92.8 fL (80.0-97.0); Mean Platelet Volume 9.5 fL (9.5-12.2); Monocytes % (A) 8.2 %; NRBC Per 100 WBC 0 /100 WBCS (0.0-0.0); Neutrophils # (A) 4.48 X 10*3/uL (1.80-7.70); Neutrophils % (A) 61.2 %; Platelet Count 263 X 10*3/uL (140-440); RBC 4.59 X 10*6/uL (4.10-5.20); RDW 13.3 % (11.5-14.5); WBC 7.33 X 10*3/uL (4.50-10.00)
== END | disposition home or self-care (01) ==
LOC: LABWHC1 09:36
PROVIDERS: ATTEND Psychiatry & Neurology Neurology
DX: G62.9 Polyneuropathy, unspecified (principal)
CPT/HCPCS: 36415; 80053; 82607; 82747; 84165; 84207; 84443; 85025; 86038; 86334